=== PATIENT | female | born 1940 | race Caucasian/White ===

== ENCOUNTER 2018-01-05 16:41 | Observation (INO) | payer MEDICARE, SELFPAY ==
[2018-01-05] VITALS (7 sets, daily range): BP systolic 99–132; BP diastolic 54–92; PULSE 82–88; RESP 14–18; TEMP 36.1–36.8; O2SAT 95–98; BMI 41.5
--- NOTE | 2018-01-05 17:25 | DI.RAD.S_ITS ---
PROCEDURE: XR CHEST 1V INDICATIONS: 77 year-old female with left arm and left shoulder pain. TECHNIQUE: One view of the chest was acquired. COMPARISON: [facility], , CHEST 1 VIEW, 07/15/2015, 12:20. [facility], , CHEST 2 VIEW, 10/25/2012, 14:15. [facility], , CHEST 2 VIEW, 10/16/2008, 17:07. FINDINGS: Surgical changes and devices: None. Lungs and pleura: No pleural effusions or pneumothorax. Lungs are clear. Mediastinum: Mediastinal contours appear normal. Heart size is normal. There is aortic atherosclerosis. Bones and chest wall: No suspicious bony lesions. Overlying soft tissues appear unremarkable. IMPRESSION: No acute cardiopulmonary disease. Dictated by: Ted Renteria M.D. on 01/05/2018 at 18:48 Approved by: Ted Renteria M.D. on 01/05/2018 at 18:48
[2018-01-05 17:44] LABS: Add Manual Diff / Slide Review NO; Basophils Percent Auto 0.8 % (0-2); Hematocrit 41.3 % (36-46); Hemoglobin 13.9 g/dL (12.0-16.0); Lymphocytes Percent Auto 22.8 % (25-40); Mean Corpuscular HGB Conc 33.6 % (30-36); Mean Corpuscular Hemoglobin 31.4 PG (26-34); Mean Corpuscular Volume 93.4 fL (80-100); Monocytes Percent Auto 9.4 % (3-14); Neutrophils Absolute Auto 4900 /uL (3000-5900); Platelet Count 145 X10^3/uL (150-400); Red Blood Cell Count 4.42 X10^6/uL (4.0-5.2); Red Cell Distribution Width 12.9 % (11.6-14.8); White Blood Cell Count 7.7 X10^3/uL (4.5-11.0)
[2018-01-05 18:01] LABS: Alanine Aminotransferase 70 IU/L (9-52); Albumin Globulin Ratio 1.4 (1.0-2.8); Alkaline Phosphatase 117 U/L (38-126); Aspartate Aminotransferase 41 IU/L (14-36); BUN Creatinine Ratio 42.9 (6-22); Bilirubin Total 0.7 mg/dL (0.2-1.3); Blood Urea Nitrogen 30 mg/dL (7-17); Calcium 9.4 mg/dL (8.4-10.2); Carbon Dioxide 25 mmol/L (22-32); Chloride 104 mmol/L (98-107); Creatine Kinase 58 U/L (30-135); Estimated Glomerular Filt Rate > 60.0 mL/min (>60); Globulin 2.8 g/dL (1.7-4.1); Glucose 103 mg/dL (80-110); HEMOLYSIS < 15 (0-50); Sodium 143 mmol/L (137-145); Total Protein 6.8 g/dL (6.3-8.2)
--- NOTE | 2018-01-05 18:08 | ED.CHESTPAIN ---
HPI - Chest Pain General Chief Complaint: Chest Pain Stated Complaint: LT ARM AND SHOULDER PAIN, HX OF STENTS Time Seen by Provider: 01/05/18 17:59 Source: patient Limitations: no limitations History of Present Illness HPI narrative: The patient is a 77-year-old female who presents with left-sided chest pain. She said she was sitting down eating watermelon with her right hand instantly she had chest pain on the left side. It hurts every time she moves her left arm. It radiates to her scapula and clavicle. She feels it down into her hand. She denies any injury. She denies shortness of breath or diaphoresis. She tried sitting in a recliner see if it would go away and has not yet gone away but has lightened up some. She does have a history of cardiac arrest in 2014 requiring 4 stents. She does not remember what that felt like. She is followed in the telling him by Dr. Tan. complaint: chest pain Time: 14:42 Related Data Home Medications Medication Instructions Recorded Confirmed aspirin 81 mg PO DAILY 01/05/18 01/05/18 atorvastatin 40 mg PO DAILY 01/05/18 01/05/18 cholecalciferol (vitamin D3) 2,000 unit PO DAILY 01/05/18 01/05/18 furosemide 20 mg PO DAILY 01/05/18 01/05/18 lisinopril 2.5 mg PO QPM 01/05/18 01/05/18 magnesium 1 tab PO DAILY 01/05/18 01/05/18 metoprolol succinate 1 tab PO DAILY 01/05/18 01/05/18 multivitamin 1 tab PO DAILY 01/05/18 01/05/18 potassium chloride 10 meq PO DAILY 01/05/18 01/05/18 Allergies Allergy/AdvReac Type Severity Reaction Status Date / Time egg Allergy Severe Anaphylaxis Verified 01/05/18 23:26 Penicillins Allergy Severe Anaphylaxis Verified 01/05/18 23:26 lovastatin Allergy Intermediate Verified 01/05/18 23:26 azithromycin Allergy Mild Verified 01/05/18 23:26 codeine [CODEINE] Allergy Mild Verified 01/05/18 23:26 Sulfa (Sulfonamide Allergy Mild Verified 01/05/18 23:26 Antibiotics) Barbiturates AdvReac Verified 01/05/18 23:27 Review of Systems Review of Systems All systems reviewed & are unremarkable except as noted in HPI and below Constitutional Denies chills, Denies fever(s), Denies lethargy and Denies weakness Cardiovascular Reports as per HPI, Denies dyspnea and Denies dyspnea on exertion Respiratory Denies cough, Denies dyspnea, Denies dyspnea on exertion and Denies wheezing Musculoskeletal Reports system reviewed and no additional complaints, except as docu Neurologic Denies weakness Allergic/Immunologic Denies wheezing [facility] Medical History Coronary artery disease (Acute) Hyperlipidemia (Acute) Hypertension (Acute) Past heart attack (Acute) Surgical History H/O heart artery stent (Acute) History of back surgery (Acute) History of tonsillectomy and adenoidectomy (Acute) Hx of appendectomy (Acute) Social History household members: spouse and children Smoking Status: Never smoker Exam Initial Vital Signs Initial Vital Signs: Vital Signs Temperature 98.2 F 01/05/18 16:59 Pulse Rate 88 01/05/18 16:59 Respiratory Rate 18 01/05/18 16:59 Blood Pressure 119/54 L 01/05/18 16:59 Pulse Oximetry 97 01/05/18 16:59 Const General: cooperative Nutritional Appearance: overweight Orientation: alert, awake and oriented x3 Neck Neck: No JVD Chest Other: Pain is reproducible slightly in her left AC area Resp Effort & Inspection: normal respiratory effort and able to speak in complete sentences Auscultation: clear to auscultation bilaterally Cardio Rate: regular rate Rhythm: regular rhythm Heart Sounds: S1 normal and S2 normal GI Inspection: non-distended Palpation: soft, no hepatosplenomegaly, No guarding, No pulsatile mass and No tender Auscultation: normal bowel sounds Skin General: no rashes or lesions noted, No jaundice and No petechiae Neuro General: alert, awake and oriented x3 Cranial Nerves: CN's II-XI intact bilaterally Extrem Right lower extremity: no edema Left lower extremity: no edema Course Hospital Course: Her pain has improved has since she has been to the ED. It did get a little bit better with aspirin. We discussed on nitroglycerin however she adamantly refuses nitro. She appears comfortable. Orders Ordered: ED Orders 01/05/18 18:09 EKG-12 Lead Stat 01/05/18 19:29 Consult to Physician Routine 01/05/18 21:56 MRSA PCR Stat 01/06/18 00:28 NM bita perf SPECT rest & str Routine 01/06/18 02:34 Troponin I Urgent Acetaminophen (Tylenol) 650 mg PO Q6HR PRN PRN Reason: As Needed for Fever/Mild Pain Aspirin (Aspirin Ec) 81 mg PO QPM [facility] Atorvastatin Calcium (Lipitor) 40 mg PO BEDTIME [facility] Last Admin: 01/06/18 00:05 Dose: Not Given Furosemide (Lasix) 20 mg PO SuTuTh@0900 KG Lisinopril (Zestril) 2.5 mg PO QPM [facility] Last Admin: 01/05/18 23:58 Dose: 2.5 mg Magnesium Chloride (Slow-Mag) 64 mg PO QPM [facility] Last Admin: 01/05/18 22:55 Dose: Multivitamins (Tab-A-Monet) 1 tab PO DAILY [facility] Potassium Chloride (Klor-Con M10) 10 meq PO DAILYCC [facility] Vitamin D (Vitamin D3) 2,000 unit PO DAILY KG Discontinued Medications Aspirin (Aspirin) 325 mg PO NOW ONE Stop: 01/05/18 18:09 Last Admin: 01/05/18 18:27 Dose: 325 mg Furosemide (Lasix) 20 mg PO DAILY [facility] Ketorolac Tromethamine (Toradol) 15 mg IV NOW ONE Stop: 01/06/18 02:07 Last Admin: 01/06/18 02:40 Dose: 15 mg Reevaluation(s) Reevaluation #1: Dr. Banda has been updated patient's symptoms and test results. Vital Signs - 8 hr 01/05/18 19:13 01/05/18 20:50 01/05/18 23:58 Temperature 97.0 F L Pulse Rate 83 82 83 Respiratory Rate 15 17 Blood Pressure 124/92 H 99/57 L Blood Pressure [Right Arm] 124/70 H Pulse Oximetry 97 95 01/06/18 00:35 Temperature 98.1 F Pulse Rate 93 H Respiratory Rate 18 Blood Pressure 99/57 L Blood Pressure [Right Arm] Pulse Oximetry 96 MDM - Chest Pain Lab Data Attestation: I reviewed the patient's lab results. Result diagrams: 01/05/18 17:28 01/05/18 17:28 Lab Results 01/05/18 01/05/18 01/05/18 Range/Units 17:28 17:28 17:28 WBC 7.7 (4.5-11.0) X10^3/uL RBC 4.42 (4.0-5.2) X10^6/uL Hgb 13.9 (12.0-16.0) g/dL Hct 41.3 (36-46) % MCV 93.4 (80-100) fL MCH 31.4 (26-34) PG MCHC 33.6 (30-36) % RDW 12.9 (11.6-14.8) % Plt Count 145 L (150-400) X10^3/uL Neut % (Auto) 64.0 (50-75) % Lymph % (Auto) 22.8 L (25-40) % Pacific % (Auto) 9.4 (3-14) % Eos % (Auto) 3.0 (2-4) % Baso % (Auto) 0.8 (0-2) % Neut # (Auto) 4900 (3651-7483) /uL Sodium 143 (137-145) mmol/L Potassium 4.0 (3.4-5.1) mmol/L Chloride 104 (98-107) mmol/L Carbon Dioxide 25 (22-32) mmol/L BUN 30 H (7-17) mg/dL Creatinine 0.70 (0.52-1.04) mg/dL Estimated GFR > 60.0 (>60) mL/min BUN/Creatinine Ratio 42.9 H (6-22) Glucose 103 (80-110) mg/dL Calcium 9.4 (8.4-10.2) mg/dL Magnesium (1.6-2.3) mg/dL Total Bilirubin 0.7 (0.2-1.3) mg/dL AST 41 H (14-36) IU/L ALT 70 H (9-52) IU/L Alkaline Phosphatase 117 (38-126) U/L Total Creatine Kinase 58 (30-135) U/L CK-MB (CK-2) TNP Troponin I < 0.012 (0.01-0.034) ng/mL B-Natriuretic Peptide (<29.3) Total Protein 6.8 (6.3-8.2) g/dL Albumin 4.0 (3.5-5.0) g/dL Globulin 2.8 (1.7-4.1) g/dL Albumin/Globulin Ratio 1.4 (1.0-2.8) Nasal Screen MRSA (PCR) (Negative) 01/05/18 01/05/18 01/05/18 Range/Units 17:28 17:28 21:56 WBC (4.5-11.0) X10^3/uL RBC (4.0-5.2) X10^6/uL Hgb (12.0-16.0) g/dL Hct (36-46) % MCV (80-100) fL MCH (26-34) PG MCHC (30-36) % RDW (11.6-14.8) % Plt Count (150-400) X10^3/uL Neut % (Auto) (50-75) % Lymph % (Auto) (25-40) % Pacific % (Auto) (3-14) % Eos % (Auto) (2-4) % Baso % (Auto) (0-2) % Neut # (Auto) (0471-6181) /uL Sodium (137-145) mmol/L Potassium (3.4-5.1) mmol/L Chloride (98-107) mmol/L Carbon Dioxide (22-32) mmol/L BUN (7-17) mg/dL Creatinine (0.52-1.04) mg/dL Estimated GFR (>60) mL/min BUN/Creatinine Ratio (6-22) Glucose (80-110) mg/dL Calcium (8.4-10.2) mg/dL Magnesium 1.8 (1.6-2.3) mg/dL Total Bilirubin (0.2-1.3) mg/dL AST (14-36) IU/L ALT (9-52) IU/L Alkaline Phosphatase (38-126) U/L Total Creatine Kinase (30-135) U/L CK-MB (CK-2) Troponin I (0.01-0.034) ng/mL B-Natriuretic Peptide 80.1 (<29.3) Total Protein (6.3-8.2) g/dL Albumin (3.5-5.0) g/dL Globulin (1.7-4.1) g/dL Albumin/Globulin Ratio (1.0-2.8) Nasal Screen MRSA (PCR) Negative for mrsa (Negative) Imaging Data Chest x-ray: Radiologist's impression: PROCEDURE: XR CHEST 1V INDICATIONS: 77 year-old female with left arm and left shoulder pain. TECHNIQUE: One view of the chest was acquired. COMPARISON: [facility], , CHEST 1 VIEW, 07/15/2015, 12:20. [facility], , CHEST 2 VIEW, 10/25/2012, 14:15. [facility], , CHEST 2 VIEW, 10/16/2008, 17:07. FINDINGS: Surgical changes and devices: None. Lungs and pleura: No pleural effusions or pneumothorax. Lungs are clear. Mediastinum: Mediastinal contours appear normal. Heart size is normal. There is aortic atherosclerosis. Bones and chest wall: No suspicious bony lesions. Overlying soft tissues appear unremarkable. IMPRESSION: No acute cardiopulmonary disease. Dictated by: Ted Renteria M.D. on 01/05/2018 at 18:48 ECG Data Attestation: I personally reviewed and interpreted this ECG as follows: Prior ECG tracings: not available for review Interpretation: EKG 1.: Sinus rhythm rate 75 left bundle-branch block no acute ST changes no prior to compare EKG 2. Normal sinus rhythm rate 83 no changes from prior no ST changes with bundle-branch block MDM Narrative Medical decision making narrative: Patient has significant coronary artery disease with a cardiac arrest on 3 years ago. She has followed up and telling him. Still awaiting records. Patient says this pain is different from her previous pain. Some of it is reproducible with movement however she is considered high risk and will be placed in observation for further monitoring and evaluation. Discharge Plan Departure Patient Disposition: Admitted as Observation Clinical Impression: Chest pain Discharge Date/Time: 01/05/18 20:24 Interventions: ED Discharge Assessment Last Done: 01/05/18 20:17 Admit Date/Time: 01/05/18 19:41 Admit Provider: Adam Banda V
[2018-01-05 18:17] LABS: Troponin I < 0.012 ng/mL (0.01-0.034)
[2018-01-05] MEDS: ASPIRIN 325 MG TABLET PO (18:27)
[2018-01-05 19:13] LABS: B Type Natriuretic Peptide 80.1 (<29.3)
[2018-01-05 19:45] LABS: Magnesium 1.8 mg/dL (1.6-2.3)
--- NOTE | 2018-01-05 22:43 | PC.NURSE ---
Admission Note: Pt admitted to ICU from ER for chest discomfort. Pt reports chest discomfort at 3/10 after getting OOB to BS. Pt states that she has taken nitroglycerin before and would not take again d/t adverse side effects. Pt in NSR with BBB. Pt with significant R sided weakness and tremoring in RUE. Also significant core weakness that causes her to wobble back and forth with standing. Pt is accustomed to these mobility issues and is independent with mobility at home. Discussed fall safety measures, pt states she can't use a FWW d/t her movement issues and the fact that they move with her rather than providing stability. Pt states at home she uses marte for stability and holds onto door jambs. Discussed that we will be helping her with transferring while she is in the hospital. Recommend 2 person assist d/t unpredictable movement patterns. Pt otherwise with VSS, A and O x3. Orders received to recheck troponins in am. Continue to monitor, notify MD with changes.
[2018-01-05] MEDS: LISINOPRIL 5 MG TABLET 2.5 MG PO (23:58)
[2018-01-06] VITALS (12 sets, daily range): BP systolic 80–121; BP diastolic 44–70; PULSE 72–93; RESP 16–18; TEMP 36.3–37.2; O2SAT 93–97
[2018-01-06] MEDS: KETOROLAC 15 MG/ML VIAL IV (02:40)
--- NOTE | 2018-01-06 02:45 | PC.NURSE ---
Started c/o left shoulder/arm pain after I tried to help her find the siderail by moving her arm above her shoulder to move herself in the bed. Tried repositioning and a warm blanket on shoulder, then called Dr. Banda for orders. Med with Toradol 15mg and will re-evaluate.
[2018-01-06 03:02] LABS: Troponin I < 0.012 ng/mL (0.01-0.034)
[2018-01-06] MEDS: POTASSIUM CHLORIDE 10 MEQ TAB PO (09:22)
[2018-01-06] MEDS: MULTIVITAMIN 1 TABLET 1 TAB PO (09:22)
[2018-01-06] MEDS: CHOLECALCIFEROL (VITAMIN D3) 1,000 UNIT TABLET 2000 UNIT PO (09:22)
--- NOTE | 2018-01-06 09:53 | CM.DANOTE ---
Addendum entered by Hiral Newton 01/07/18 12:55: Per Md: PT/OT eval not needed and patient to discharge home today. Original Note: DCP Assessment Patient is a 77 year old female who was admitted on 01/05/18 for Lt Arm Pain and Hx Stents. Pt has MCR and [employer] for insurance and her PCP is Dr. Spivey. EMR was reviewed. Per MD, about to assess pt bedside to determine if stress test needed or further tests before discharge. SW met bedside with pt and explained role and pt confirmed that she lives at home in [place] with her , who is currently in [place], and has supportive son Bernard who lives in [place] and son Rory who lives in [place], [place]. Pt states her DPOA's are her sons and . Pt confirms that she is independent with ADL's at baseline and does tend to ambulate by wall and furniture surfing and has figured out how to safely ambulate and goes to outpt PT 5 days a week and drives herself to appointments and shopping. Pt denies any hx of HH or SNF and states that if she can get her pain in her arm/chest and toes controlled then she does not anticipate any needs. Plan: SW to follow for further MD assessment to determine if further tests needed and possible PT/OT orders to determine any further d/c planning needs. SW to follow closely. Edita Soto MSW
--- NOTE | 2018-01-06 10:16 | P.HP_ITS ---
History of Present Illness Date Patient Seen: 01/06/18 Chief complaint: LT ARM AND SHOULDER PAIN, HX OF STENTS Narrative: Patient is 77-year-old female with history of 3 vessel CAD, cardiac stents after cardiac arrest in 2014, chronic chest pain subsequent to cardiac arrest, presented to emergency department with complaints of chest discomfort that was more severe and not going away. She was lying down in bed and developed severe substernal and left-sided chest pain radiating to the left arm , neck, jaw and head. This pain persisted quite a while and she was told by PCP to seek urgent evaluation in the ER. The pain had subsided to around 4/10 by the time she was seen in the ER last night and this morning the pain has largely resolved. She does have chronic pain in the chest which occurs daily but is not there all the time and is relieved when she sits up in her recliner. This pain seems to have been more severe and persistent. She has had 2 serial negative troponin. EKG with baseline left bundle-branch block. She sees Dr. Prince Alcala for Cardiology. Patient History Medical History Cardiac arrest (Acute) Coronary artery disease (Acute) Hyperlipidemia (Acute) Hypertension (Acute) Past heart attack (Acute) Systolic heart failure (Acute) Surgical History H/O heart artery stent (Acute) History of back surgery (Acute) History of tonsillectomy and adenoidectomy (Acute) Hx of appendectomy (Acute) Hx of cholecystectomy (Acute) Family & Social History Family History: Reviewed 01/06/18 by Delfino Vieira MD Social History: household members spouse,children Prior Living Arrangements House Safety & Behavioral: Feels Safe in Current Yes Environment Been Physically Hurt or No Threatened By a Person Suicidal Ideation Description None Suicide Plan Description No Plan Tobacco & Substance use: Smoking Status Never smoker alcohol intake frequency 0-2 drinks per day Substance Use Type does not use Meds Home Medications Medication Instructions Recorded Confirmed Type aspirin 81 mg PO DAILY 01/05/18 01/05/18 History atorvastatin 40 mg PO DAILY 01/05/18 01/05/18 History cholecalciferol (vitamin D3) 2,000 unit PO DAILY 01/05/18 01/05/18 History furosemide 20 mg PO DAILY 01/05/18 01/05/18 History lisinopril 2.5 mg PO QPM 01/05/18 01/05/18 History magnesium 1 tab PO DAILY 01/05/18 01/05/18 History metoprolol succinate 1 tab PO DAILY 01/05/18 01/05/18 History multivitamin 1 tab PO DAILY 01/05/18 01/05/18 History potassium chloride 10 meq PO DAILY 01/05/18 01/05/18 History Allergies Allergy/AdvReac Type Severity Reaction Status Date / Time egg Allergy Severe Anaphylaxis Verified 01/05/18 23:26 Penicillins Allergy Severe Anaphylaxis Verified 01/05/18 23:26 lovastatin Allergy Intermediate Verified 01/05/18 23:26 azithromycin Allergy Mild Verified 01/05/18 23:26 codeine [CODEINE] Allergy Mild Verified 01/05/18 23:26 Sulfa (Sulfonamide Allergy Mild Verified 01/05/18 23:26 Antibiotics) Barbiturates AdvReac Verified 01/05/18 23:27 Review of Systems Review of Systems All systems reviewed & are unremarkable except as noted in HPI and below Exam Vital Signs (past 8 hours): Vital Signs - 8 hr 3 01/06/18 04:36 01/06/18 09:47 Temperature 97.5 F L 98.9 F Pulse Rate 78 72 Respiratory Rate 16 16 Blood Pressure 115/56 L 121/65 H Pulse Oximetry 97 97 Pulse Oximetry 97 Oxygen Delivery Method Room Air Oxygen Flow Rate 0 Narrative Exam Narrative: GENERAL: This is an alert well-nourished, well-developed patient , in no apparent distress. HEAD: Atraumatic. Normocephalic. EYES: Pupils equal, round and reactive. Extraocular motions intact. No scleral icterus. No injection or drainage. OROPHARYNX: moist mucosa NECK: Trachea midline. No JVD or lymphadenopathy. Cardiac: Normal S1 and S2, regular rate and rhythm, slight systolic murmur, no gallops, or rubs. RESPIRATORY: Clear to auscultation bilaterally. GASTROINTESTINAL: Abdomen nondistended, soft, non-tender. No hepato- splenomegaly, or palpable masses. EXTREMITIES: No edema. NEUROLOGICAL: Alert, well oriented, speech is intact, normal bilateral upper and lower extremity strength, she has right upper extremity movement tremor SKIN: warm, dry, no rash Objective Labs Result Diagrams: 01/05/18 17:28 01/05/18 17:28 Labs: Chest x-ray: No acute cardiopulmonary disease. EKG: Sinus rhythm, left bundle branch block 01/05/1818 01/05/18 17:28 17:28 17:28 WBC 7.7 RBC 4.42 Hgb 13.9 Hct 41.3 MCV 93.4 MCH 31.4 MCHC 33.6 RDW 12.9 Plt Count 145 L Neut % (Auto) 64.0 Lymph % (Auto) 22.8 L Grainger % (Auto) 9.4 Eos % (Auto) 3.0 Baso % (Auto) 0.8 Neut # (Auto) 4900 Sodium 143 Potassium 4.0 Chloride 104 Carbon Dioxide 25 BUN 30 H Creatinine 0.70 Estimated GFR > 60.0 BUN/Creatinine Ratio 42.9 H Glucose 103 Calcium 9.4 Magnesium Total Bilirubin 0.7 AST 41 H ALT 70 H Alkaline Phosphatase 117 Total Creatine Kinase 58 CK-MB (CK-2) TNP Troponin I < 0.012 B-Natriuretic Peptide Total Protein 6.8 Albumin 4.0 Globulin 2.8 Albumin/Globulin Ratio 1.4 Nasal Screen MRSA (PCR) 01/05/18 01/05/18 01/05/18 17:28 17:28 21:56 WBC RBC Hgb Hct MCV MCH MCHC RDW Plt Count Neut % (Auto) Lymph % (Auto) Grainger % (Auto) Eos % (Auto) Baso % (Auto) Neut # (Auto) Sodium Potassium Chloride Carbon Dioxide BUN Creatinine Estimated GFR BUN/Creatinine Ratio Glucose Calcium Magnesium 1.8 Total Bilirubin AST ALT Alkaline Phosphatase Total Creatine Kinase CK-MB (CK-2) Troponin I B-Natriuretic Peptide 80.1 Total Protein Albumin Globulin Albumin/Globulin Ratio Nasal Screen MRSA (PCR) Negative for mrsa 01/06/18 02:34 WBC RBC Hgb Hct MCV MCH MCHC RDW Plt Count Neut % (Auto) Lymph % (Auto) Grainger % (Auto) Eos % (Auto) Baso % (Auto) Neut # (Auto) Sodium Potassium Chloride Carbon Dioxide BUN Creatinine Estimated GFR BUN/Creatinine Ratio Glucose Calcium Magnesium Total Bilirubin AST ALT Alkaline Phosphatase Total Creatine Kinase CK-MB (CK-2) Troponin I < 0.012 B-Natriuretic Peptide Total Protein Albumin Globulin Albumin/Globulin Ratio Nasal Screen MRSA (PCR) Assessment & Plan Plan: Assessment/Plan Narrative: 1. Chest pain episode: Patient has significant cardiac risk factor of 3 vessel CAD, previous cardiac arrest, and coronary stents. However current episode of chest pain is on background of chronic chest pain since her cardiac arrest but with this episode more severe and persistent. It is unclear whether this is truly cardiac source of pain. Her 1st 2 sets of troponin are negative. EKG was sinus rhythm and left bundle branch block. Due to her cardiac history, we have admitted to observation and arranged for Lexiscan myocardial perfusion stress test to determine presence of any reversible ischemia. Continue routine aspirin, atorvastatin, lisinopril, metoprolol, furosemide and potassium and magnesium pills per home routine.
--- NOTE | 2018-01-06 12:37 | PC.NURSE ---
pt had emily stress test, tolerated well. sitting in chair for lunch
[2018-01-06] MEDS: SODIUM CHLORIDE 0.9% 1,000 ML 1000 ML IV (15:52)
--- NOTE | 2018-01-06 16:06 | PC.NURSE ---
Addendum entered by Madhuri Aguero R.N. 01/06/18 21:19: Pt A&O, VSS, 94% on RA through out shift. Tele SR/BBB, no ectopy. BP after IV Bolus 121/70 and 106/61. Pt accidently removed PIV, new PIV restarted in L upper arm, currently SL. No complaints of chest pain or discomfort through out shift. Up w/ SBA to bathroom, using call light appropriately. Original Note: Evening Shift Pt hypotensive at begining of shift 80/59, expressing slight dizziness and need to go back top bed. Pt was helped to bed and BP taken while standing, BP 97/48. Pt helped back in bed and states that she feels fine, except for slight dizziness. BP supine in bed 80/59. paged and orders received for 1L bolus. Bolus currently infusing.
[2018-01-06] MEDS: ATORVASTATIN 20 MG TABLET 40 MG PO (21:11)
[2018-01-06] MEDS: ASPIRIN EC 81 MG TABLET PO (21:11)
[2018-01-06] MEDS: MAGNESIUM CHLORIDE 64 MG TABLET PO (21:11)
[2018-01-07 03:00] VITALS: BP 131/61; PULSE 83; RESP 17; TEMP 36.4; O2SAT 95
[2018-01-07 07:52] VITALS: BP 120/77; PULSE 73; RESP 16; TEMP 36.4; O2SAT 96
[2018-01-07] MEDS: MULTIVITAMIN 1 TABLET 1 TAB PO (08:18)
[2018-01-07] MEDS: POTASSIUM CHLORIDE 10 MEQ TAB PO (08:18)
[2018-01-07] MEDS: CHOLECALCIFEROL (VITAMIN D3) 1,000 UNIT TABLET 2000 UNIT PO (08:18)
--- NOTE | 2018-01-07 11:02 | PC.NURSE ---
pt back from [facility].
[2018-01-07 12:23] VITALS: BP 136/71; PULSE 79; RESP 16; TEMP 36.1; O2SAT 96
--- NOTE | 2018-01-07 12:45 | PM.DS.1 ---
History of Present Illness Chief complaint: LT ARM AND SHOULDER PAIN, HX OF STENTS Narrative: Patient is 77-year-old female with history of 3 vessel CAD, cardiac stents after cardiac arrest in 2015, chronic chest pain subsequent to cardiac arrest, presented to emergency department with complaints of chest discomfort that was more severe and not going away. She was lying down in bed and developed severe substernal and left-sided chest pain radiating to the left arm, neck, jaw and head. This pain persisted quite a while and she was told by PCP to seek urgent evaluation in the ER. The pain had subsided to around 4/10 by the time she was seen in the ER last night and this morning the pain has largely resolved. She does have chronic pain in the chest which occurs daily but is not there all the time and is relieved when she sits up in her recliner. This pain seems to have been more severe and persistent. She has had 2 serial negative troponin. EKG with baseline left bundle-branch block. She sees Dr. Prince Alcala for Cardiology. Discharge Providers Date of admission: 01/05/18 19:41 Primary care physician: Selene Spivey MD Consults: 01/05/18 19:29 Consult to Physician Routine Comment: Consulting Provider: Adam Banda V Reason for consultation: admission Has provider been notified: Yes Discharge provider: Delfino Vieira MD Summary Discharge Diagnosis: 1. Chest pain, probably noncardiac 2. Coronary artery disease Hospital Course: Patient ruled out for NM. A Lexiscan stress test was conducted. She has some regional wall motion changes without obvious reversibility. Her LVEF is 70%. Her pain is quite atypical, on background of chronic pain in same area, with normal troponin and no obvious reversible ischemia on stress testing. She is therefore low risk for discharge to follow up with her regular biomedical specialist Dr. Prince Alcala. She had questions regarding her neurological condition which I was unable to answer and suggested she follow up with her PCP. She has seen Dr. Ha for Neurology and will need to establish with new neurologist now that Dr. Ha has retired. Status at Discharge Functional status at discharge: independent ambulation Overall status at discharge: patient is back to baseline Exam Vital Signs (past 8 hours): Vital Signs - 8 hr 01/07/18 07:52 01/07/18 12:23 Temperature 97.5 F L 97.0 F L Pulse Rate 73 79 Respiratory Rate 16 16 Blood Pressure 120/77 136/71 H Pulse Oximetry 96 96 Pulse Oximetry 96 Oxygen Delivery Method Room Air Oxygen Flow Rate 0 Objective Labs Result Diagrams: 01/05/18 17:28 01/05/18 17:28 Discharge Plan Discharge Plan Patient Disposition: Home, Self-Care Provider Discharge Instructions Diet: Diet as Tolerated Discharge Data Primary Care Provider: Selene Spivey Attending Provider: Adam Banda V Admit Date/Time: 01/05/18 19:41
--- NOTE | 2018-01-07 12:50 | P.DS_ITS ---
History of Present Illness Chief complaint: LT ARM AND SHOULDER PAIN, HX OF STENTS Narrative: Patient is 77-year-old female with history of 3 vessel CAD, cardiac stents after cardiac arrest in 2015, chronic chest pain subsequent to cardiac arrest, presented to emergency department with complaints of chest discomfort that was more severe and not going away. She was lying down in bed and developed severe substernal and left-sided chest pain radiating to the left arm , neck, jaw and head. This pain persisted quite a while and she was told by PCP to seek urgent evaluation in the ER. The pain had subsided to around 4/10 by the time she was seen in the ER last night and this morning the pain has largely resolved. She does have chronic pain in the chest which occurs daily but is not there all the time and is relieved when she sits up in her recliner. This pain seems to have been more severe and persistent. She has had 2 serial negative troponin. EKG with baseline left bundle-branch block. She sees Dr. Prince Alcala for Cardiology. Discharge Providers Date of admission: 01/05/18 19:41 Primary care physician: Selene Spivey MD Consults: 01/05/18 19:29 Consult to Physician Routine Comment: Consulting Provider: Adam Banda V Reason for consultation: admission Has provider been notified: Yes Discharge provider: Delfino Vieira MD Summary Discharge Diagnosis: 1. Chest pain, probably noncardiac 2. Coronary artery disease Hospital Course: Patient ruled out for MN. A Lexiscan stress test was conducted. She has some regional wall motion changes without obvious reversibility. Her LVEF is 70%. Her pain is quite atypical, on background of chronic pain in same area, with normal troponin and no obvious reversible ischemia on stress testing. 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 She had questions regarding her neurological condition which I was unable to answer and suggested she follow up with her PCP. She has seen Dr. Ha for Neurology and will need to establish with new neurologist now that Dr. Ha has retired. Status at Discharge Functional status at discharge: independent ambulation Overall status at discharge: patient is back to baseline Exam Vital Signs (past 8 hours): Vital Signs - 8 hr 3 01/07/18 07:52 01/07/18 12:23 Temperature 97.5 F L 97.0 F L Pulse Rate 73 79 Respiratory Rate 16 16 Blood Pressure 120/77 136/71 H Pulse Oximetry 96 96 Pulse Oximetry 96 Oxygen Delivery Method Room Air Oxygen Flow Rate 0 Objective Labs Result Diagrams: 01/05/18 17:28 01/05/18 17:28 Discharge Plan Discharge Plan Patient Disposition: Home, Self-Care Provider Discharge Instructions Diet: Diet as Tolerated Discharge Data Primary Care Provider: Selene Spivey Attending Provider: dAam Banda V Admit Date/Time: 01/05/18 19:41
--- NOTE | 2018-01-07 15:31 | DI.NM.S_ITS ---
DATE OF SERVICE: 01/06/2018 PROCEDURE PERFORMED: Pharmacologic vasodilator stress and rest myocardial perfusion imaging with gating to assess ejection fraction and regional wall motion. ORDERING PROVIDER: Adam Banda MD INDICATIONS: The patient is a 77-year-old obese female with a history of percutaneous coronary revascularization who now presents with atypical chest discomfort and normal troponins. PHARMACOLOGIC STRESS: Per protocol, 0.4 mg of regadenoson was infused with a normal hemodynamic response. She continued to have her chronic chest discomfort but nothing new. Her ECG showed an incomplete left bundle branch block and there were no significant ST-segment shifts with stress to suggest ischemia. There were no arrhythmias. Per protocol, 20.4 mCi of technetium-99 Myoview IV was injected, and the patient was imaged 25 minutes later using a gated SPECT acquisition protocol. She returned the following day and was reinjected with 26.4 mCi of technetium-99 Myoview and was imaged 45 minutes later, again using a gated SPECT protocol. FINDINGS: 1. RAW DATA: Image quality is moderately poor, in part due to the patient's body habitus with very prominent breast shadows which clearly produce significant attenuation artifact. The lung/heart ratio was mildly elevated at 0.44, which can be a sign of pulmonary congestion, although it is fairly nonspecific given the amount of chest wall attenuation seen. The TID ratio is normal at 1.11. 2. QUANTITATIVE GATED SPECT: Post-stress ejection fraction is estimated at 72% without any focal wall motion abnormality. Resting ejection fraction is estimated at 80% with a normal end-diastolic volume of 82 mL. 3. MYOCARDIAL PERFUSION IMAGING: Post-stress supine images are of marginal quality with slight heterogeneity diffusely with some reduced tracer activity at the base of the inferior wall in a pattern that would be consistent with diaphragmatic attenuation as well as a fairly subtle defect in the very distal anteroapex, which would be consistent with breast attenuation artifact. Prone imaging was unable to be obtained because of the patient's immobility. The resting images show an identical perfusion pattern with no improvement in the defects seen on the stress images. In addition, there is a more profound defect in the anterolateral wall, which likely reflects differential breast positioning. CONCLUSION: 1. Probable normal myocardial perfusion study. 2. Mild fixed proximal inferior and distal anteroapical defects that likely reflect attenuation artifact. There is no compelling evidence for myocardial ischemia or previous myocardial infarction. 3. Normal left ventricular systolic function without any obvious focal wall motion abnormalities. 4. Chronic chest discomfort but no concerning symptoms for angina with an incomplete LBBB that limits interpretation of the ECG. Lucie Root - /jose a/ doc#: [id number]/job#: [id number] dd: 01/07/2018 12:35:00 dt: 01/07/2018 15:07:00 DICTATING MD/COPIES TO: Dariel Lopez MD; Adam Banda MD; Prince Alcala MD COPIES MNE: AMILCAR PINEDA; TONE
== END 2018-01-07 13:15 | disposition home or self-care (01) ==
LOC: ED 17:59 → ICU 19:41
PROVIDERS: Emergency Medicine; Admitting Provider Internal Medicine; Emergency Provider Emergency Medicine; Family Provider Internal Medicine Cardiovascular Disease; PCP Internal Medicine; Visit Provider Internal Medicine
DX: R07.9 Chest pain, unspecified (principal); I25.10 Atherosclerotic heart disease of native coronary artery without angina pectoris; E78.5 Hyperlipidemia, unspecified; I10 Essential (primary) hypertension; I25.2 Old myocardial infarction; M25.512 Pain in left shoulder; M79.622 Pain in left upper arm
CPT/HCPCS: 36415; 36592; 71045; 78452; 80053; 82550; 82553; 83735; 83880; 84484; 85025; 87797; 93005; 93016; 93017; 93018; 93041; 96374; 99283; 99285; G0378; A9502; J1885; J2785

== ENCOUNTER → 2019-01-13 09:48 | Outpatient (CLI) | payer MEDICARE, SELFPAY ==
[2019-01-02 13:47] VITALS: BMI 41.5
--- NOTE | 2019-01-13 | DI.MG.S_ITS ---
BILATERAL DIGITAL SCREENING MAMMOGRAM 3D/2D WITH CAD: 01/13/2019 CLINICAL: Routine screening. Comparison is made to exams dated: 04/29/2017 mammogram, 04/24/2016 mammogram, and 04/12/2015 mammogram - [facility]. There are scattered fibroglandular elements in both breasts. Current study was also evaluated with a Computer Aided Detection (CAD) system. There are benign calcifications in both breasts. No significant masses, calcifications, or other findings are seen in either breast. There has been no significant interval change. IMPRESSION: There is no mammographic evidence of malignancy. A 1 year screening mammogram is recommended. This exam was interpreted at Station ID: [id number]. NOTE: For mammograms, a report in lay terms will be sent to the patient. Approximately 15% of breast malignancies will not be visualized mammographically. In the management of a palpable breast mass, a negative mammogram must not discourage biopsy of a clinically suspicious lesion. Electronically Signed By: Awais york/cody:01/17/2019 10:53:40 letter sent: Normal Exam ACR BI-RADS Category 2: Benign Finding(s) [id number]
== END ==
PROVIDERS: PCP Internal Medicine; Visit Provider Internal Medicine
DX: Z12.31 Encounter for screening mammogram for malignant neoplasm of breast (principal)
CPT/HCPCS: 77063; 77067

== ENCOUNTER 2019-02-13 10:52 | Emergency (ER) | payer MEDICARE, SELFPAY ==
[2019-01-02 13:47] VITALS: BMI 41.5
[2019-02-13] VITALS (9 sets, daily range): BP systolic 106–127; BP diastolic 67–83; PULSE 75–91; RESP 13–22; TEMP 36.2; O2SAT 93–95
[2019-02-13] MEDS: ONDANSETRON 4 MG/2 ML INJ IV ×2 (11:31→16:20)
[2019-02-13 11:33] LABS: Add Manual Diff / Slide Review NO; Basophils Absolute Auto 0 /uL (0-100); Basophils Percent Auto 0.6 % (0-2); Eosinophils Absolute Auto 100 /uL (0-450); Eosinophils Percent Auto 1.2 % (2-4); Hematocrit 45.1 % (36-46); Lymphocytes Absolute Auto 700 /uL (1100-4500); Lymphocytes Percent Auto 12.2 % (25-40); Mean Corpuscular HGB Conc 33.4 % (30-36); Mean Corpuscular Hemoglobin 31.1 PG (26-34); Mean Corpuscular Volume 93.2 fL (80-100); Monocytes Absolute Auto 600 /uL (0-900); Monocytes Percent Auto 10.3 % (3-14); Neutrophils Absolute Auto 4400 /uL (1500-7000); Neutrophils Percent Auto 75.7 % (50-75); Platelet Count 137 X10^3/uL (150-400); Red Blood Cell Count 4.84 X10^6/uL (4.0-5.2); Red Cell Distribution Width 13.2 % (11.6-14.8); White Blood Cell Count 5.8 X10^3/uL (4.5-11.0)
[2019-02-13 11:46] LABS: INR 1.1 (0.9-1.3); Prothrombin Time 12.3 SECONDS (10.1-12.7)
[2019-02-13 11:48] LABS: Alanine Aminotransferase 40 IU/L (9-52); Albumin 4.2 g/dL (3.5-5.0); Albumin Globulin Ratio 1.4 (1.0-2.8); Alkaline Phosphatase 98 U/L (38-126); Aspartate Aminotransferase 34 IU/L (14-36); BUN Creatinine Ratio 27.5 (6-22); Bilirubin Total 0.8 mg/dL (0.2-1.3); Blood Urea Nitrogen 22 mg/dL (7-17); Calcium 9.6 mg/dL (8.4-10.2); Carbon Dioxide 24 mmol/L (22-32); Chloride 107 mmol/L (98-107); Estimated Glomerular Filt Rate > 60.0 mL/min (>60); Globulin 2.9 g/dL (1.7-4.1); Glucose 119 mg/dL (80-110); HEMOLYSIS < 15 (0-50); PTT Partial Thromboplastin Tim 33 SECONDS (26.4-36.2); Potassium 3.9 mmol/L (3.4-5.1); Sodium 142 mmol/L (137-145); Total Protein 7.1 g/dL (6.3-8.2)
--- NOTE | 2019-02-13 11:54 | DI.RAD.S_ITS ---
PROCEDURE: XR CHEST 1V INDICATIONS: Chest pain TECHNIQUE: One view of the chest was acquired. COMPARISON: [facility], CR, XR CHEST 1V, 01/05/2018, 18:25. FINDINGS: Surgical changes and devices: None. Lungs and pleura: Low lung volumes with scattered subsegmental atelectasis/scarring. No pleural effusions or pneumothorax. There are mild patchy retrocardiac opacities Mediastinum: Mediastinal contours appear normal. Heart size is normal. Bones and chest wall: No suspicious bony lesions. Overlying soft tissues appear unremarkable. IMPRESSION: Low lung volumes with scattered atelectasis/aspiration. Dictated by: Rafat Brown M.D. on 02/13/2019 at 12:12 Approved by: Rafat Brown M.D. on 02/13/2019 at 12:14
--- NOTE | 2019-02-13 11:58 | ED.NAVMDI ---
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 Patient also states that she has had left-sided chest discomfort yesterday but that has resolved. Patient states that she was able to eat soup last night a little bit this morning. Denies shortness of breath, chest pain at this time, headaches, change in vision, swelling of her legs, or syncope. Patient also denies sick contacts. Related Data Home Medications Medication Instructions Recorded Confirmed aspirin 81 mg PO DAILY 01/05/18 01/05/18 atorvastatin 40 mg PO DAILY 01/05/18 02/13/19 cholecalciferol (vitamin D3) 2,000 unit PO DAILY 01/05/18 01/05/18 furosemide 20 mg PO DAILY 01/05/18 02/13/19 lisinopril 2.5 mg PO QPM 01/05/18 02/13/19 magnesium 1 tab PO DAILY 01/05/18 01/05/18 metoprolol succinate 25 mg PO DAILY 01/05/18 02/13/19 multivitamin 1 tab PO DAILY 01/05/18 01/05/18 potassium chloride 10 meq PO DAILY 01/05/18 02/13/19 oxybutynin chloride 5 mg PO TID 02/13/19 02/13/19 Previous Rx's Medication Instructions Recorded ondansetron 4 mg PO Q8H #10 tab 02/13/19 Allergies Allergy/AdvReac Type Severity Reaction Status Date / Time egg Allergy Severe Anaphylaxis Verified 01/05/18 23:26 Penicillins Allergy Severe Anaphylaxis Verified 01/05/18 23:26 lovastatin Allergy Intermediate Verified 01/05/18 23:26 azithromycin Allergy Mild Verified 01/05/18 23:26 codeine [CODEINE] Allergy Mild Verified 01/05/18 23:26 Sulfa (Sulfonamide Allergy Mild Verified 01/05/18 23:26 Antibiotics) Barbiturates AdvReac Verified 01/05/18 23:27 Review of Systems <PATRICIA Saldaña - Last Filed: 02/13/19 21:53> Review of Systems REVIEW OF SYSTEMS: GENERAL: Denies fever, chills, malaise, or wt. loss. HENT: No head trauma, sore throat, or dysphagia. EYES: No loss of vision, double vision, eye pain, or irritation. CARDIOVASCULAR: Complains of chest pain a few days ago, palpitations, or orthopnea. RESPIRATORY: No shortness of breath or cough. GASTROINTESTINAL: Complains of vomiting and diarrhea, see HPI GENITOURINARY: No flank pain, urinary incontinence, hesitancy, frequency, or dysuria. MUSCULOSKELETAL: No pain, weakness, or trauma. INTEGUMENTARY: No rash, lesions, or pruritus. NEURO: No numbness, tingling, memory loss, confusion, or headaches. PSYCH: No behavior or mood changes. PFSH <PATRICIA Saldaña - Last Filed: 02/13/19 21:53> Medical History Cardiac arrest (Acute) Coronary artery disease (Acute) Hyperlipidemia (Acute) Hypertension (Acute) Past heart attack (Acute) Systolic heart failure (Acute) Surgical History H/O heart artery stent (Acute) History of back surgery (Acute) History of tonsillectomy and adenoidectomy (Acute) Hx of appendectomy (Acute) Hx of cholecystectomy (Acute) Social History household members: spouse and children Smoking Status: Never smoker Social History household members: spouse and children Smoking Status: Never smoker Exam <PATRICIA Saldaña - Last Filed: 02/13/19 21:53> Initial Vital Signs Initial Vital Signs: Vital Signs Temperature 97.2 F L 02/13/19 10:55 Pulse Rate 90 02/13/19 10:55 Respiratory Rate 13 02/13/19 10:55 Blood Pressure 117/83 02/13/19 10:55 Pulse Oximetry 94 02/13/19 10:55 PHYSICAL EXAMINATION: GENERAL: Well groomed, alert, and cooperative. 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 Vital signs noted. HENT: Normocephalic, atraumatic. Hearing intact. Oral mucosa is pink and moist. EYES: Conjunctiva pink, sclera white, no periorbital swelling. CARDIOVASCULAR: S1 and S2 sounds normal. Regular rate and rhythm. Grade 3 systolic murmur noted. No clicks or bruits. RESPIRATORY: Normal respiratory rate, trachea midline, airway patent. No stridor, nasal flaring or accessory muscle use. Lungs sounds decreased in bases, no crackles or wheezes heard. GASTROINTESTINAL: Bowel sounds normoactive. Abdomen is soft and non-tender. No organomegaly, no palpable masses. Difficult to exam due to body habitus and obesity. MUSCULOSKELETAL: Normal gait and coordination. Equal tone and mass bilaterally. EXTREMITIES: CMS intact, no pedal edema. SKIN: Warm, dry, soft, appropriate color for ethnicity. No lesions, rashes, or wounds. NEURO: Alert and Oriented X 3. Good coordination. No ataxia, or sensory deficits, or cognitive issues. PSYCH: Appropriate affect and mood. <Joselo Birch DO - Last Filed: 02/14/19 08:15> Initial Vital Signs Initial Vital Signs: Vital Signs Temperature 97.2 F L 02/13/19 10:55 Pulse Rate 90 02/13/19 10:55 Respiratory Rate 13 02/13/19 10:55 Blood Pressure 117/83 02/13/19 10:55 Pulse Oximetry 94 02/13/19 10:55 Course <PATRICIA Saldaña - Last Filed: 02/13/19 21:53> Course Narrative: During the course of her stay in the emergency department, patient had 3 episodes of diarrhea that were stool and not significantly watery. Patient was able to get up and transfer to the commode with minor assistance. During part of the stay her oxygen saturation decreased to 89 and 90% on room air, respiratory therapy was called to provide incentive spirometer therapy as her chest x-ray showed atelectasis. After this patient's oxygen saturation improved to 93 and 94% on room air. Patient continued to deny shortness of breath or chest pain at this time. Patient's stool was sent to the lab, she was told that she will get a call if the cultures were abnormal. The lab reported to not have an adequate sample for C diff, nursing staff discussed with labs as they had stool. Patient was instructed follow up with her primary care provider. Family and patient continued to push for admission. And extensive 20 minutes conversation was had with patient and family that she was not a candidate for admission due to her normal labs, normal imaging, and ability to transfer to the commode. Both nursing staff and provider spoke with patient multiple times about this. Eventually, patient understood, was encouraged to follow up with her primary care provider for request for home healthcare as she feels like that was needed. I also spoke to the geriatric social work professor, who stated they are not able to prescribe primary care out of the emergency department due to lack of follow-up. Orders Ordered: Discontinued Medications Sodium Chloride (Normal Saline 0.9%) 500 mls @ 1,000 mls/hr IV BOLUS ONE Stop: 02/13/19 12:27 Last Infusion: 02/13/19 13:05 Dose: 0 mls/hr Admin: 02/13/19 12:02 Dose: 1,000 mls/hr Ondansetron HCl (Zofran) 4 mg IV NOW ONE Stop: 02/13/19 11:13 Last Admin: 02/13/19 11:31 Dose: 4 mg Ondansetron HCl (Zofran) 4 mg IV NOW ONE Stop: 02/13/19 16:14 Last Admin: 02/13/19 16:20 Dose: 4 mg Reevaluation(s) Reevaluation #1: Patient alert and awake, sitting up in bed, able to transfer to the commode, denies any symptoms at this time other than diarrhea. Consultations Consultation #1: Patient staffed with Dr. Birch, discussion with geriatric social work professor also occurred. Vital Signs - 8 hr 02/13/19 14:06 02/13/19 15:29 02/13/19 15:30 Pulse Rate 87 78 75 Respiratory Rate 17 18 22 Blood Pressure [Left Arm] 112/67 121/73 Pulse Oximetry 94 93 93 02/13/19 16:00 02/13/19 16:31 Pulse Rate 91 H Respiratory Rate Blood Pressure [Left Arm] 106/74 106/74 Pulse Oximetry 95 <Joselo Birch DO - Last Filed: 02/14/19 08:15> Orders Ordered: Discontinued Medications Sodium Chloride (Normal Saline 0.9%) 500 mls @ 1,000 mls/hr IV BOLUS ONE Stop: 02/13/19 12:27 Last Infusion: 02/13/19 13:05 Dose: 0 mls/hr Admin: 02/13/19 12:02 Dose: 1,000 mls/hr Ondansetron HCl (Zofran) 4 mg IV NOW ONE Stop: 02/13/19 11:13 Last Admin: 02/13/19 11:31 Dose: 4 mg Ondansetron HCl (Zofran) 4 mg IV NOW ONE Stop: 02/13/19 16:14 Last Admin: 02/13/19 16:20 Dose: 4 mg Vital Signs - 8 hr 02/13/19 14:06 02/13/19 15:29 02/13/19 15:30 Pulse Rate 87 78 75 Respiratory Rate 17 18 22 Blood Pressure [Left Arm] 112/67 121/73 Pulse Oximetry 94 93 93 02/13/19 16:00 02/13/19 16:31 Pulse Rate 91 H Respiratory Rate Blood Pressure [Left Arm] 106/74 106/74 Pulse Oximetry 95 MDM - Nausea/Vomiting/Diarrhea <PATRICIA Saldaña - Last Filed: 02/13/19 21:53> Medical Records Attestation: I reviewed the patient's medical records. Lab Data Attestation: I reviewed the patient's lab results. Result diagrams: 02/13/19 11:20 02/13/19 11:20 Lab Results 02/13/19 02/13/19 02/13/19 Range/Units 11:20 11:20 11:20 WBC 5.8 (4.5-11.0) X10^3/uL RBC 4.84 (4.0-5.2) X10^6/uL Hgb 15.0 (12.0-16.0) g/dL Hct 45.1 (36-46) % MCV 93.2 (80-100) fL MCH 31.1 (26-34) PG MCHC 33.4 (30-36) % RDW 13.2 (11.6-14.8) % Plt Count 137 L (150-400) X10^3/uL Neut % (Auto) 75.7 H (50-75) % Lymph % (Auto) 12.2 L (25-40) % [place] % (Auto) 10.3 (3-14) % Eos % (Auto) 1.2 L (2-4) % Baso % (Auto) 0.6 (0-2) % Neut # (Auto) 4400 (3599-4005) /uL Lymph # (Auto) 700 L (3073-4999) /uL [place] # (Auto) 600 (0-900) /uL Eos # (Auto) 100 (0-450) /uL Baso # (Auto) 0 (0-100) /uL PT 12.3 (10.1-12.7) SECONDS INR 1.1 (0.9-1.3) APTT 33 (26.4-36.2) SECONDS Sodium 142 (137-145) mmol/L Potassium 3.9 (3.4-5.1) mmol/L Chloride 107 (98-107) mmol/L Carbon Dioxide 24 (22-32) mmol/L BUN 22 H (7-17) mg/dL Creatinine 0.80 (0.52-1.04) mg/dL Estimated GFR > 60.0 (>60) mL/min BUN/Creatinine Ratio 27.5 H (6-22) Glucose 119 H (80-110) mg/dL Calcium 9.6 (8.4-10.2) mg/dL Total Bilirubin 0.8 (0.2-1.3) mg/dL AST 34 (14-36) IU/L ALT 40 (9-52) IU/L Alkaline Phosphatase 98 (38-126) U/L Total Creatine Kinase (30-135) U/L CK-MB (CK-2) CK-MB (CK-2) Rel Index Troponin I (0.01-0.034) ng/mL Total Protein 7.1 (6.3-8.2) g/dL Albumin 4.2 (3.5-5.0) g/dL Globulin 2.9 (1.7-4.1) g/dL Albumin/Globulin Ratio 1.4 (1.0-2.8) Gastric Fluid pH (1-2) pH Gastric Occult Blood (NEGATIVE) 02/13/19 02/13/19 Range/Units 11:20 12:15 WBC (4.5-11.0) X10^3/uL RBC (4.0-5.2) X10^6/uL Hgb (12.0-16.0) g/dL Hct (36-46) % MCV (80-100) fL MCH (26-34) PG MCHC (30-36) % RDW (11.6-14.8) % Plt Count (150-400) X10^3/uL Neut % (Auto) (50-75) % Lymph % (Auto) (25-40) % [place] % (Auto) (3-14) % Eos % (Auto) (2-4) % Baso % (Auto) (0-2) % Neut # (Auto) (2662-0238) /uL Lymph # (Auto) (1006-6801) /uL [place] # (Auto) (0-900) /uL Eos # (Auto) (0-450) /uL Baso # (Auto) (0-100) /uL PT (10.1-12.7) SECONDS INR (0.9-1.3) APTT (26.4-36.2) SECONDS Sodium (137-145) mmol/L Potassium (3.4-5.1) mmol/L Chloride (98-107) mmol/L Carbon Dioxide (22-32) mmol/L BUN (7-17) mg/dL Creatinine (0.52-1.04) mg/dL Estimated GFR (>60) mL/min BUN/Creatinine Ratio (6-22) Glucose (80-110) mg/dL Calcium (8.4-10.2) mg/dL Total Bilirubin (0.2-1.3) mg/dL AST (14-36) IU/L ALT (9-52) IU/L Alkaline Phosphatase (38-126) U/L Total Creatine Kinase 35 (30-135) U/L CK-MB (CK-2) TNP CK-MB (CK-2) Rel Index TNP Troponin I < 0.012 (0.01-0.034) ng/mL Total Protein (6.3-8.2) g/dL Albumin (3.5-5.0) g/dL Globulin (1.7-4.1) g/dL Albumin/Globulin Ratio (1.0-2.8) Gastric Fluid pH 5-7 H (1-2) pH Gastric Occult Blood Negative (NEGATIVE) Point of Care Testing Stool Occult Blood Negative Imaging Data Chest x-ray: Radiologist's impression: [address] [id number] XRay Report Signed Patient: Lucie Root LMR#: [id number] : 2At:[id number] Age/Sex: 78 / FDate of Service: 02/13/19 Loc: ED Accession Number: [id number] Procedure: XR chest 1V Ordering Provider: Jessie Martinez PROCEDURE: XR CHEST 1V INDICATIONS: Chest pain TECHNIQUE: One view of the chest was acquired. COMPARISON: [facility], , XR CHEST 1V, 01/05/2018, 18:25. FINDINGS: Surgical changes and devices: None. Lungs and pleura: Low lung volumes with scattered subsegmental atelectasis/scarring. No pleural effusions or pneumothorax. There are mild patchy retrocardiac opacities Mediastinum: Mediastinal contours appear normal. Heart size is normal. Bones and chest wall: No suspicious bony lesions. Overlying soft tissues appear unremarkable. IMPRESSION: Low lung volumes with scattered atelectasis/aspiration. Dictated by: Rafat Brown M.D. on 02/13/2019 at 12:12 Approved by: Rafat Brown M.D. on 02/13/2019 at 12:14 CT scan - abdomen: Radiologist's impression: [address] [address] [address] Scan Report Signed Patient: Lucie Root LMR#: [id number] : 2Acct:[id number] Age/Sex: 78 / FDate of Service: 02/13/19 Loc: ED Accession Number: [id number] Procedure: CT abdomen pelvis wo con Ordering Provider: Jessie Martinez PROCEDURE: CT ABDOMEN PELVIS WO CON INDICATIONS: Epigastric pain, allergy to IV contrast, black stool TECHNIQUE: After the administration of oral contrast, 5 mm thick sections acquired from the diaphragms to the symphysis. 5 mm coronal and sagittal reformats were performed. For radiation dose reduction, the following was used: automated exposure control, adjustment of mA and/or kV according to patient size. COMPARISON: [facility], CT, KIDNEY/ URETER/BLADDER, 07/15/2015, 15:09. FINDINGS: Image quality: Excellent. ABDOMEN: Lung bases: Lung bases are clear. Heart size is normal. Advanced coronary artery calcifications. Solid organs: Liver is normal in size. Gallbladder is surgically absent. Pancreas is normal in size. Spleen is normal in size. No adrenal nodules. Both kidneys are normal in size, without hydronephrosis or nephrolithiasis. Peritoneum and bowel: Again noted are is the presence of 2 separate duodenal diverticulae. The Sigmoid diverticulosis without evidence of diverticulitis. Bowel loops demonstrate normal wall thickness and caliber. No free fluid or air. Nodes and vessels: Stable peripancreatic lymph node. No retroperitoneal or mesenteric adenopathy by size criteria. Aorta and inferior vena cava are normal in size. Miscellaneous: No ventral hernias. PELVIS: Genitourinary: Bladder wall thickness is normal. Miscellaneous: Fat-containing left inguinal hernia again noted. No inguinal adenopathy. Bones: No suspicious bony lesions. No vertebral body compression fractures. IMPRESSION: 1. There are 2 diverticuli involving the duodenum, as previously noted 2. Remote cholecystectomy. 3. Advanced coronary artery disease. 4. Sigmoid diverticulosis. 5. Left inguinal hernia containing fat. Dictated by: Joey Helton M.D. on 02/13/2019 at 14:08 Approved by: Joey Helton M.D. on 02/13/2019 at 14:13 ECG Data Attestation: I personally reviewed and interpreted this ECG as follows: Interpretation: Normal sinus rhythm, rate 86, AR interval 179, QTC 451. Left axis deviation, left bundle branch block, no ectopy, no ST elevation or ST depression. EKG appears unchanged from last EKG on 01/05/2018. EKG also viewed by Dr. Birch. [facility] Narrative Medical decision making narrative: Unsure exact etiology of diarrhea, differential includes C diff (unlikely due to little risk factors-denies recent antibotic use, lack of watery diarrhea, and moderate frequency of stools versus severe), viral gastroenteritis, medication induced diarrhea (patient reports she was given you medication a week or so ago but does not remember the name), or inflammatory process such as colitis (less likely due to lack of blood in stools and recent onset). Very little concern for GI bleed as her Hemoccult and gastroccult were negative, little concern for bowel obstruction, perforation, appendicitis, hernia strangulation, or other acute abdominal issues due to negative CT and normal labs. Patient was instructed to follow up her primary care provider for further testing. The patient wanted to be admitted, she does not meet admission criteria and was instructed to call her primary care provider for close follow-up and initiation of home care or assisted living if needed. Patient started to return to the emergency department if symptoms worsen. She was given anti nausea medication at this time. She was also told that her stools culture was pending and she will receive a call if this is abnormal. <Joselo Birch, DO - Last Filed: 02/14/19 08:15> Lab Data Lab Results 02/13/19 02/13/19 02/13/19 Range/Units 11:20 11:20 11:20 WBC 5.8 (4.5-11.0) X10^3/uL RBC 4.84 (4.0-5.2) X10^6/uL Hgb 15.0 (12.0-16.0) g/dL Hct 45.1 (36-46) % MCV 93.2 (80-100) fL MCH 31.1 (26-34) PG MCHC 33.4 (30-36) % RDW 13.2 (11.6-14.8) % Plt Count 137 L (150-400) X10^3/uL Neut % (Auto) 75.7 H (50-75) % Lymph % (Auto) 12.2 L (25-40) % [place] % (Auto) 10.3 (3-14) % Eos % (Auto) 1.2 L (2-4) % Baso % (Auto) 0.6 (0-2) % Neut # (Auto) 4400 (9609-7946) /uL Lymph # (Auto) 700 L (6042-6564) /uL [place] # (Auto) 600 (0-900) /uL Eos # (Auto) 100 (0-450) /uL Baso # (Auto) 0 (0-100) /uL PT 12.3 (10.1-12.7) SECONDS INR 1.1 (0.9-1.3) APTT 33 (26.4-36.2) SECONDS Sodium 142 (137-145) mmol/L Potassium 3.9 (3.4-5.1) mmol/L Chloride 107 (98-107) mmol/L Carbon Dioxide 24 (22-32) mmol/L BUN 22 H (7-17) mg/dL Creatinine 0.80 (0.52-1.04) mg/dL Estimated GFR > 60.0 (>60) mL/min BUN/Creatinine Ratio 27.5 H (6-22) Glucose 119 H (80-110) mg/dL Calcium 9.6 (8.4-10.2) mg/dL Total Bilirubin 0.8 (0.2-1.3) mg/dL AST 34 (14-36) IU/L ALT 40 (9-52) IU/L Alkaline Phosphatase 98 (38-126) U/L Total Creatine Kinase (30-135) U/L CK-MB (CK-2) CK-MB (CK-2) Rel Index Troponin I (0.01-0.034) ng/mL Total Protein 7.1 (6.3-8.2) g/dL Albumin 4.2 (3.5-5.0) g/dL Globulin 2.9 (1.7-4.1) g/dL Albumin/Globulin Ratio 1.4 (1.0-2.8) Gastric Fluid pH (1-2) pH Gastric Occult Blood (NEGATIVE) 02/13/19 02/13/19 Range/Units 11:20 12:15 WBC (4.5-11.0) X10^3/uL RBC (4.0-5.2) X10^6/uL Hgb (12.0-16.0) g/dL Hct (36-46) % MCV (80-100) fL MCH (26-34) PG MCHC (30-36) % RDW (11.6-14.8) % Plt Count (150-400) X10^3/uL Neut % (Auto) (50-75) % Lymph % (Auto) (25-40) % [place] % (Auto) (3-14) % Eos % (Auto) (2-4) % Baso % (Auto) (0-2) % Neut # (Auto) (0413-2820) /uL Lymph # (Auto) (1078-4697) /uL [place] # (Auto) (0-900) /uL Eos # (Auto) (0-450) /uL Baso # (Auto) (0-100) /uL PT (10.1-12.7) SECONDS INR (0.9-1.3) APTT (26.4-36.2) SECONDS Sodium (137-145) mmol/L Potassium (3.4-5.1) mmol/L Chloride (98-107) mmol/L Carbon Dioxide (22-32) mmol/L BUN (7-17) mg/dL Creatinine (0.52-1.04) mg/dL Estimated GFR (>60) mL/min BUN/Creatinine Ratio (6-22) Glucose (80-110) mg/dL Calcium (8.4-10.2) mg/dL Total Bilirubin (0.2-1.3) mg/dL AST (14-36) IU/L ALT (9-52) IU/L Alkaline Phosphatase (38-126) U/L Total Creatine Kinase 35 (30-135) U/L CK-MB (CK-2) TNP CK-MB (CK-2) Rel Index TNP Troponin I < 0.012 (0.01-0.034) ng/mL Total Protein (6.3-8.2) g/dL Albumin (3.5-5.0) g/dL Globulin (1.7-4.1) g/dL Albumin/Globulin Ratio (1.0-2.8) Gastric Fluid pH 5-7 H (1-2) pH Gastric Occult Blood Negative (NEGATIVE) Point of Care Testing Stool Occult Blood Negative Discharge Plan Departure Patient Disposition: Home Clinical Impression: Diarrhea Qualifiers: Diarrhea type: unspecified type Qualified Code(s): R19.7 - Diarrhea, unspecified Discharge Date/Time: 02/13/19 17:17 Interventions: ED Discharge Assessment Last Done: 02/13/19 17:17 Instructions: Diarrhea, DI for Vomiting -- Adult Activity Restrictions/Additional Instructions: Thank you for entrusting me with your care today. As discussed, your lab results and CT scan are negative for acute or worrisome findings. Please follow up with your primary care provider in the next day or so for further evaluation. I prescribed a medication for nausea. Return to the emergency department if she develops chest pain, shortness of breath, excessive vomiting that does not resolve with the medication that was prescribed, dizziness, syncope, or severe abdominal pain. Prescriptions: New ondansetron 4 mg tablet,disintegrating 4 mg PO Q8H Qty: 10 RF: 0 No Action atorvastatin 40 mg tablet 40 mg PO DAILY RF: 0 potassium chloride 10 mEq tablet extended release 10 meq PO DAILY RF: 0 furosemide 20 mg tablet 20 mg PO DAILY RF: 0 metoprolol succinate 25 mg tablet extended release 24 hr 25 mg PO DAILY RF: 0 lisinopril 2.5 mg tablet 2.5 mg PO QPM RF: 0 aspirin 81 mg Tablet,Delayed Release (Dr/Ec) 81 mg PO DAILY RF: 0 magnesium tablet 1 tab PO DAILY RF: 0 multivitamin 1 tab PO DAILY RF: 0 cholecalciferol (vitamin D3) 2,000 unit Tablet 2,000 unit PO DAILY RF: 0 oxybutynin chloride 5 mg tablet 5 mg PO TID RF: 0 Referrals: Selene Spivey MD [Primary Care Provider] - <Joselo Birch DO - Last Filed: 02/14/19 08:15> Cosign ED Attending Cosignature Attestation: I was available for consultation during this patient's emergency department encounter
[2019-02-13 11:59] LABS: Creatine Kinase 35 U/L (30-135)
[2019-02-13] MEDS: SODIUM CHLORIDE 0.9% 500 ML 1000 ML IV (12:02)
[2019-02-13 12:12] LABS: Troponin I < 0.012 ng/mL (0.01-0.034)
--- NOTE | 2019-02-13 12:50 | DI.CT.S_ITS ---
PROCEDURE: CT ABDOMEN PELVIS WO CON INDICATIONS: Epigastric pain, allergy to IV contrast, black stool TECHNIQUE: After the administration of oral contrast, 5 mm thick sections acquired from the diaphragms to the symphysis. 5 mm coronal and sagittal reformats were performed. For radiation dose reduction, the following was used: automated exposure control, adjustment of mA and/or kV according to patient size. COMPARISON: [facility], CT, KIDNEY/ URETER/BLADDER, 07/15/2015, 15:09. FINDINGS: Image quality: Excellent. ABDOMEN: Lung bases: Lung bases are clear. Heart size is normal. Advanced coronary artery calcifications. Solid organs: Liver is normal in size. Gallbladder is surgically absent. Pancreas is normal in size. Spleen is normal in size. No adrenal nodules. Both kidneys are normal in size, without hydronephrosis or nephrolithiasis. Peritoneum and bowel: Again noted are is the presence of 2 separate duodenal diverticulae. The Sigmoid diverticulosis without evidence of diverticulitis. Bowel loops demonstrate normal wall thickness and caliber. No free fluid or air. Nodes and vessels: Stable peripancreatic lymph node. No retroperitoneal or mesenteric adenopathy by size criteria. Aorta and inferior vena cava are normal in size. Miscellaneous: No ventral hernias. PELVIS: Genitourinary: Bladder wall thickness is normal. Miscellaneous: Fat-containing left inguinal hernia again noted. No inguinal adenopathy. Bones: No suspicious bony lesions. No vertebral body compression fractures. IMPRESSION: 1. There are 2 diverticuli involving the duodenum, as previously noted 2. Remote cholecystectomy. 3. Advanced coronary artery disease. 4. Sigmoid diverticulosis. 5. Left inguinal hernia containing fat. Dictated by: Joey Helton M.D. on 02/13/2019 at 14:08 Approved by: Joey Helotn M.D. on 02/13/2019 at 14:13
[2019-02-13 12:55] LABS: Occult Blood Gastric Fluid NEGATIVE (NEGATIVE)
== END 2019-02-13 17:17 | disposition home or self-care (01) ==
PROVIDERS: Emergency Medicine; Emergency Provider Nurse Practitioner; PCP Internal Medicine
DX: R19.7 Diarrhea, unspecified (principal); R07.9 Chest pain, unspecified
CPT/HCPCS: 36591; 71045; 74176; 74177; 80053; 82271; 82272; 82550; 83986; 84484; 85025; 85610; 85730; 93005; 96361; 96374; 96376; 99285; J2405; Q9967

== ENCOUNTER 2019-02-19 03:30 | Observation (INO) | payer MEDICARE, SELFPAY ==
[2019-01-02 13:47] VITALS: BMI 41.5
[2019-02-19] VITALS (22 sets, daily range): BP systolic 85–135; BP diastolic 41–95; PULSE 78–114; RESP 11–20; TEMP 36.2–37; O2SAT 92–98; BMI 43.0
--- NOTE | 2019-02-19 | DI.ECHO.S_ITS ---
[facility] +---------+ : : [address] : : : : [id number] : : : : Phone: [phone] Echocardiogram Report + + :Name: KOKI MUÑOZ Study Date: 02/19/2019 Height: 62 in : :[facility] Weight: 235 lb : : Gender: Female BSA: 2.0 m2 : :: 1940 Age: 78 yrs BP: 116/72 mmHg: :Reason For Study: CHEST PAIN : :Ordering Physician: Brian : :Hospitalist Performed By: Pilar Greer : :Referring: MARYELLEN HANEY : + + Interpretation Summary The study quality was technically difficult. The left ventricle is not well visualized. The left ventricle is hyperdynamic. The ejection fraction is estimated to be 70-75%. 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 An intracavitary gradient is suspected. The right ventricle grossly appears normal in size with probable normal systolic function. The mitral valve is not well visualized.There is moderate to severe mitral annular calcification. The mitral valve mean gradient is 13 mmHg. With mean gradient appears to be significant mitral stenosis however with pressure half-time mitral valve area about 2.1 internal medicine nurse practitioner? which do not suggest significant mitral stenosis. The aortic valve is not well visualized. The aortic valve is moderately calcified. The peak aortic velocity is 3.4 m/sec. The aortic valve mean gradient is 30 mmHg. The calculated aortic valve area is 1.2 cm2. At least moderate . The IVC is of normal diameter and collapses greater than 50% with a sniff. This suggests a low right atrial pressure of 3 mm Hg. Consider ALEJANDRA for better evaluation of mitral valve and aortic valve pathology. Procedure: A two-dimensional transthoracic echocardiogram with color flow and Doppler was performed. The study quality was technically difficult. There is no prior echocardiogram noted for this patient. A contrast injection of Definity was performed to improve assessment of LV function. The patient was in normal sinus rhythm during the exam. Left Ventricle: The left ventricle is not well visualized. The echo findings are consistent with left ventricular outflow obstruction. 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 An intracavitary gradient is suspected. The left ventricle is hyperdynamic. The ejection fraction is estimated to be 70-75%. There are no obvious focal wall motion abnormalities noted but poor endocardial definition reduces the sensitivity for the detection of such. Diastolic function could not be accurately assessed due to confounding valvular disease. Right Ventricle: The right ventricle grossly appears normal in size with probable normal systolic function. Atria: The left atrium is severely dilated. Right atrium not well visualized. There is no Doppler evidence for an interatrial shunt. Mitral Valve: The mitral valve leaflets are moderately calcified. There is moderate to severe mitral annular calcification. The mitral valve is not well visualized. The mitral valve mean gradient is 13 mmHg. There is trace mitral regurgitation. Aortic Valve: The aortic valve is moderately calcified. The aortic valve is not well visualized. At least moderate . The calculated aortic valve area is 1.2 cm2. The peak aortic velocity is 3.4 m/sec. The aortic valve mean gradient is 30 mmHg. No aortic regurgitation is present. Tricuspid Valve: The tricuspid valve is not well visualized. Pulmonary artery pressures cannot be estimated because of the lack of a measurable TR jet velocity. There is trace tricuspid regurgitation. Pulmonic Valve: The pulmonic valve is not well visualized. Great Vessels: The aortic root is normal size. The ascending aorta could not be visualized. The aortic arch could not be visualized. The pulmonary is not well visualized. The IVC is of normal diameter and collapses greater than 50% with a sniff. This suggests a low right atrial pressure of 3 mm Hg. Pericardium/ Pleura There is no pericardial effusion. There is no pleural effusion. MMode/2D Measurements & Calculations LVOT diam: 2.0 cm LA A2 area: 35.3 cm2 Ao root diam: 3.1 cm LA A4 area: 40.7 cm2 LA length (vol): 8.3 cm LA vol: 146.9 ml LA vol index: 71.8 ml/m2 IVC diam: 1.5 cm TAPSE: 2.6 cm Doppler Measurements & Calculations Ao V2 max: 335.1 cm/sec LVOT Max Neri: 138.7 cm/sec Ao V2 mean: 262.5 cm/sec LV V1 max P.7 mmHg Ao max P.9 mmHg LV V1 VTI: 25.1 cm Ao mean P.6 mmHg BALTAZAR(I,D): 1.2 cm2 Ao V2 VTI: 66.0 cm BALTAZAR(V,D): 1.3 cm2 sev ratio: 0.38 BALTAZAR indexed to BSA (cm^2/m^2): 0.58 MV E max neri: 139.6 cm/sec PA V2 max: 84.2 cm/sec MV A max neri: 250.0 cm/sec PA V2 mean: 59.3 cm/sec MV E/A: 0.56 PA mean P.6 mmHg Med Peak E' Neri: 3.1 cm/sec PA Accel Time: 0.09 sec E/E' med: 45.7 Lat Peak E' Neri: 3.8 cm/sec E/E' lat: 36.8 E/e' average: 41.3 MV dec time: 0.36 sec MVA(VTI): 1.5 cm2 MV V2 mean: 172.0 cm/sec SV(LVOT): 77.9 ml MV mean P.0 mmHg MV V2 VTI: 50.5 cm Reading Physician:STAN
--- NOTE | 2019-02-19 03:46 | DI.RAD.S_ITS ---
PROCEDURE: XR CHEST 1V INDICATIONS: chest pain TECHNIQUE: One view of the chest was acquired. COMPARISON: None. FINDINGS: Surgical changes and devices: None. Lungs and pleura: Lungs are clear. No pleural effusions or pneumothorax. Mediastinum: Mediastinal contours appear normal. Heart size is normal. Bones and chest wall: No suspicious bony lesions. Overlying soft tissues appear unremarkable. IMPRESSION: No acute cardiopulmonary findings. Dictated by: Liz Ross M.D. on 02/19/2019 at 7:02 Approved by: Liz Ross M.D. on 02/19/2019 at 7:02
[2019-02-19] MEDS: SODIUM CHLORIDE 0.9% 1,000 ML 150 ML IV (03:52)
[2019-02-19] MEDS: ASPIRIN 81 MG TAB 324 MG PO (03:52)
--- NOTE | 2019-02-19 03:53 | ED_ITS ---
HPI - Chest Pain General Chief Complaint: Chest Pain Stated Complaint: abdominal pain Time Seen by Provider: 02/19/19 03:37 Source: patient Mode of arrival: ambulatory Limitations: no limitations History of Present Illness HPI narrative: Patient is a 78-year-old female with history of coronary artery disease and stents who presents with epigastric pain. She says it woke her from her sleep of radiates of throughout between her shoulder blades. She has had this before in fact she was here on 02/13/2019 with similar pain however at that time she was having diarrhea and a little bit of vomiting as well. She had CT of her abdomen which did not show any acute abnormality. She was negative for C diff. She has not had any further vomiting or diarrhea since she was discharged. She was seen by her PCP last week and is actually scheduled to see him again on Wednesday (tomorrow). However the pain has gotten worse. She denies any shortness of breath diaphoresis. She says it is worse lying flat and better sitting up. She denies any dyspnea with exertion MD complaint: chest pain Onset: awoke with symptoms Pain location: substernal Quality: aching and heaviness Pain radiation: back Exacerbating factors: supine Related Data Home Medications Medication Instructions Recorded Confirmed aspirin 81 mg PO DAILY 01/05/18 01/05/18 atorvastatin 40 mg PO DAILY 01/05/18 02/13/19 cholecalciferol (vitamin D3) 2,000 unit PO DAILY 01/05/18 01/05/18 furosemide 20 mg PO DAILY 01/05/18 02/13/19 lisinopril 2.5 mg PO QPM 01/05/18 02/13/19 magnesium 1 tab PO DAILY 01/05/18 01/05/18 metoprolol succinate 25 mg PO DAILY 01/05/18 02/13/19 multivitamin 1 tab PO DAILY 01/05/18 01/05/18 potassium chloride 10 meq PO DAILY 01/05/18 02/13/19 oxybutynin chloride 5 mg PO TID 02/13/19 02/13/19 folic acid 800 mcg PO DAILY 02/19/19 02/19/19 Previous Rx's Medication Instructions Recorded ondansetron 4 mg PO Q8H #10 tab 02/13/19 Allergies Allergy/AdvReac Type Severity Reaction Status Date / Time egg Allergy Severe Anaphylaxis Verified 01/05/18 23:26 Penicillins Allergy Severe Anaphylaxis Verified 01/05/18 23:26 lovastatin Allergy Intermediate Verified 01/05/18 23:26 azithromycin Allergy Mild Verified 01/05/18 23:26 codeine [CODEINE] Allergy Mild Verified 01/05/18 23:26 Sulfa (Sulfonamide Allergy Mild Verified 01/05/18 23:26 Antibiotics) Barbiturates AdvReac Verified 01/05/18 23:27 Review of Systems Review of Systems ROS Unobtainable: All systems reviewed & are unremarkable except as noted in HPI and below Constitutional Denies chills, Denies fever(s), Denies lethargy and Denies weakness Eyes Denies change in vision, Denies eye discharge, Denies irritation and Denies loss of vision ENT Ears, Nose, Mouth, and Throat: Denies change in voice, Denies neck pain and Denies sore throat Cardiovascular Reports as per HPI, Denies dyspnea and Denies dyspnea on exertion Respiratory Denies cough, Denies dyspnea, Denies dyspnea on exertion and Denies wheezing Gastrointestinal Gastrointestinal: Reports abdominal pain (Epigastric), Denies change in bowel habits, Denies diarrhea, Denies nausea and Denies vomiting Genitourinary Denies hematuria, Denies flank pain, Denies urinary incontinence and Denies urinary urgency Musculoskeletal Denies neck pain Integumentary/Breasts Denies pruritus, Denies erythema, Denies rash and Denies wounds Neurologic Denies loss of vision and Denies weakness Allergic/Immunologic Denies wheezing [facility] Medical History Cardiac arrest (Acute) Coronary artery disease (Acute) Hyperlipidemia (Acute) Hypertension (Acute) Past heart attack (Acute) Systolic heart failure (Acute) Surgical History H/O heart artery stent (Acute) History of back surgery (Acute) History of tonsillectomy and adenoidectomy (Acute) Hx of appendectomy (Acute) Hx of cholecystectomy (Acute) Social History household members: spouse and children Smoking Status: Never smoker Social History household members: spouse and children Smoking Status: Never smoker Exam Initial Vital Signs Initial Vital Signs: Vital Signs Temperature 97.2 F L 02/19/19 03:33 Pulse Rate 95 H 02/19/19 03:33 Respiratory Rate 20 02/19/19 03:33 Blood Pressure 106/95 H 02/19/19 03:33 Pulse Oximetry 95 02/19/19 03:33 GENERAL: Alert elderly female appears in mild discomfort HEENT: Head atraumatic,EOMI, pupils reactive, face symmetric, moist mucous membranes CARDIOVASCULAR: Regular rate and rhythm without murmurs, rubs or gallops. No sternal pain RESPIRATORY: Breath sounds equal bilaterally, no wheezes rales or rhonchi. ABDOMEN: Soft, epigastric tenderness pain reproducible to touch. Normoactive bowel sounds all 4 quadrants. No guarding or rebound. EXTREMITIES: Normal range of motion, no clubbing or edema. Neurovascularly intact NEUROLOGICAL: Alert and oriented x4.Normal gait and speech. Cranial nerves II through XII grossly intact. SKIN: Warm, dry, no laceration, no petechiae, no rashes or lesions. Course Orders Ordered: ED Orders 02/19/19 EKG-12 Lead Stat EKG-12 Lead Stat 02/19/19 03:42 B Type Natriuretic Peptide Stat Complete Blood Count AUTO DIFF Stat Comprehensive Metabolic Panel Stat Lipase Stat Partial Thromboplastin Time Stat Prothrombin Time INR Stat Troponin & CK Cardiac Panel Stat 02/19/19 03:46 XR chest 1V Stat 02/19/19 04:17 CT angio chest abdomen pelvis Stat 02/19/19 05:44 Acetaminophen Stat 02/19/19 06:40 Troponin I Stat Sodium Chloride (Normal Saline 0.9%) 1,000 mls @ 150 mls/hr IV CONT KG Last Admin: 02/19/19 03:52 Dose: 150 mls/hr Discontinued Medications Aspirin (Aspirin Chew) 324 mg PO NOW ONE Stop: 02/19/19 03:47 Last Admin: 02/19/19 03:52 Dose: 324 mg Diphenhydramine HCl (Benadryl) 25 mg IV NOW ONE Stop: 02/19/19 04:20 Last Admin: 02/19/19 04:25 Dose: 25 mg Methylprednisolone (Solu-Medrol 125 Mg Vial) 125 mg IV NOW ONE Stop: 02/19/19 04:20 Last Admin: 02/19/19 04:25 Dose: 125 mg Nitroglycerin (Nitrostat) 0.4 mg SL NOW ONE Stop: 02/19/19 03:47 Last Admin: 02/19/19 03:54 Dose: 0.4 mg Vital Signs - 8 hr 02/19/19 03:33 02/19/19 03:54 02/19/19 03:55 Temperature 97.2 F L Pulse Rate 95 H 100 H 93 H Respiratory Rate 20 17 Blood Pressure 106/95 H 115/69 Blood Pressure [Right Arm] 115/69 Pulse Oximetry 95 02/19/19 03:59 02/19/19 04:00 02/19/19 04:51 Temperature Pulse Rate 106 H 95 H 84 Respiratory Rate 17 19 17 Blood Pressure 104/63 Blood Pressure [Right Arm] 128/73 104/56 L 125/65 Pulse Oximetry 93 92 97 02/19/19 05:00 02/19/19 06:00 Temperature Pulse Rate 92 H 79 Respiratory Rate 20 18 Blood Pressure Blood Pressure [Right Arm] 111/62 111/62 Pulse Oximetry 95 98 MDM - Chest Pain Lab Data Attestation: I reviewed the patient's lab results. Result diagrams: 02/19/19 03:42 02/19/19 03:42 Lab Results 02/19/19 02/19/19 02/19/19 Range/Units 03:42 03:42 03:42 WBC 7.5 (4.5-11.0) X10^3/uL RBC 4.71 (4.0-5.2) X10^6/uL Hgb 14.7 (12.0-16.0) g/dL Hct 43.6 (36-46) % MCV 92.5 (80-100) fL MCH 31.1 (26-34) PG MCHC 33.7 (30-36) % RDW 13.2 (11.6-14.8) % Plt Count 175 (150-400) X10^3/uL Neut % (Auto) 71.2 (50-75) % Lymph % (Auto) 19.0 L (25-40) % Craven % (Auto) 6.5 (3-14) % Eos % (Auto) 2.7 (2-4) % Baso % (Auto) 0.6 (0-2) % Neut # (Auto) 5300 (5392-0310) /uL Lymph # (Auto) 1400 (7385-7113) /uL Craven # (Auto) 500 (0-900) /uL Eos # (Auto) 200 (0-450) /uL Baso # (Auto) 0 (0-100) /uL PT 12.3 (10.1-12.7) SECONDS INR 1.1 (0.9-1.3) APTT 34 (26.4-36.2) SECONDS Sodium 139 (137-145) mmol/L Potassium 3.8 (3.4-5.1) mmol/L Chloride 104 (98-107) mmol/L Carbon Dioxide 26 (22-32) mmol/L BUN 31 H (7-17) mg/dL Creatinine 0.80 (0.52-1.04) mg/dL Estimated GFR > 60.0 (>60) mL/min BUN/Creatinine Ratio 38.8 H (6-22) Glucose 125 H (80-110) mg/dL Calcium 9.7 (8.4-10.2) mg/dL Total Bilirubin 1.1 (0.2-1.3) mg/dL AST 257 H (14-36) IU/L ALT 147 H (9-52) IU/L Alkaline Phosphatase 227 H D (38-126) U/L Total Creatine Kinase 34 (30-135) U/L CK-MB (CK-2) TNP CK-MB (CK-2) Rel Index TNP Troponin I < 0.012 (0.01-0.034) ng/mL B-Natriuretic Peptide < 100 (<100) Total Protein 7.1 (6.3-8.2) g/dL Albumin 4.1 (3.5-5.0) g/dL Globulin 3.0 (1.7-4.1) g/dL Albumin/Globulin Ratio 1.4 (1.0-2.8) Lipase 79 (23-300) U/L Acetaminophen (10-30) ug/mL 02/19/19 Range/Units 05:44 WBC (4.5-11.0) X10^3/uL RBC (4.0-5.2) X10^6/uL Hgb (12.0-16.0) g/dL Hct (36-46) % MCV (80-100) fL MCH (26-34) PG MCHC (30-36) % RDW (11.6-14.8) % Plt Count (150-400) X10^3/uL Neut % (Auto) (50-75) % Lymph % (Auto) (25-40) % Craven % (Auto) (3-14) % Eos % (Auto) (2-4) % Baso % (Auto) (0-2) % Neut # (Auto) (1397-9143) /uL Lymph # (Auto) (7031-5572) /uL Craven # (Auto) (0-900) /uL Eos # (Auto) (0-450) /uL Baso # (Auto) (0-100) /uL PT (10.1-12.7) SECONDS INR (0.9-1.3) APTT (26.4-36.2) SECONDS Sodium (137-145) mmol/L Potassium (3.4-5.1) mmol/L Chloride (98-107) mmol/L Carbon Dioxide (22-32) mmol/L BUN (7-17) mg/dL Creatinine (0.52-1.04) mg/dL Estimated GFR (>60) mL/min BUN/Creatinine Ratio (6-22) Glucose (80-110) mg/dL Calcium (8.4-10.2) mg/dL Total Bilirubin (0.2-1.3) mg/dL AST (14-36) IU/L ALT (9-52) IU/L Alkaline Phosphatase (38-126) U/L Total Creatine Kinase (30-135) U/L CK-MB (CK-2) CK-MB (CK-2) Rel Index Troponin I (0.01-0.034) ng/mL B-Natriuretic Peptide (<100) Total Protein (6.3-8.2) g/dL Albumin (3.5-5.0) g/dL Globulin (1.7-4.1) g/dL Albumin/Globulin Ratio (1.0-2.8) Lipase (23-300) U/L Acetaminophen < 10 L (10-30) ug/mL Imaging Data Chest x-ray: Attestation: I personally reviewed and interpreted this imaging study as follows: My impression: No acute cardiopulmonary process CT angio chest abdomen pelvis: Radiologist's impression: Night draft report: No acute abnormalities. Aorta is normal in caliber without dissection. Intermediate left thyroid now at [place]. Intermediate left adrenal nodule. Cholecystectomy. Intra hepatic and extrahepatic bile duct dilatation. No calcific coli Coombs cholelithiasis. Additional nonemergent findings described above Calcified splenic granuloma ECG Data Attestation: I personally reviewed and interpreted this ECG as follows: Prior ECG tracings: available for review Interpretation: Sinus rhythm left bundle-branch block rate 93 P are interval [address] elevations or depressions similar previous EKG D 2. Sinus rhythm rate 111 changes. MDM Narrative Medical decision making narrative: Patient's pain initially improved after nitroglycerin. She was overall feeling a little bit better. She certainly has multiple risk factors as and symptoms concerning for recurrent coronary artery disease, and this is her 2nd visit to the ED for similar symptoms. Liver enzymes are noted to be slightly more elevated than they were 1 week ago. However bilirubin is normal along with lipase and she has no right upper quadrant pain. Tylenol level is added which is negative. Patient has CT to rule out dissection. No dissection identified. Flavio GOMEZ in ED to see and evaluate patient. agrees with observation for chest pain rule out. Discharge Plan Departure Patient Disposition: Admitted as Observation Clinical Impression: Chest pain Qualifiers: Chest pain type: unspecified Qualified Code(s): R07.9 - Chest pain, unspecified Admit Date/Time: 02/19/19 06:12 Admit Provider: Ray Carranza
[2019-02-19] MEDS: NITROGLYCERIN 0.4 MG SL TAB SL ×2 (03:54→19:15)
[2019-02-19 03:57] LABS: Add Manual Diff / Slide Review NO; Basophils Absolute Auto 0 /uL (0-100); Basophils Percent Auto 0.6 % (0-2); Eosinophils Absolute Auto 200 /uL (0-450); Eosinophils Percent Auto 2.7 % (2-4); Hematocrit 43.6 % (36-46); Hemoglobin 14.7 g/dL (12.0-16.0); INR 1.1 (0.9-1.3); Lymphocytes Absolute Auto 1400 /uL (1100-4500); Mean Corpuscular HGB Conc 33.7 % (30-36); Mean Corpuscular Hemoglobin 31.1 PG (26-34); Mean Corpuscular Volume 92.5 fL (80-100); Monocytes Absolute Auto 500 /uL (0-900); Monocytes Percent Auto 6.5 % (3-14); Neutrophils Absolute Auto 5300 /uL (1500-7000); Neutrophils Percent Auto 71.2 % (50-75); Platelet Count 175 X10^3/uL (150-400); Prothrombin Time 12.3 SECONDS (10.1-12.7); Red Blood Cell Count 4.71 X10^6/uL (4.0-5.2); Red Cell Distribution Width 13.2 % (11.6-14.8); White Blood Cell Count 7.5 X10^3/uL (4.5-11.0)
[2019-02-19 04:00] LABS: PTT Partial Thromboplastin Tim 34 SECONDS (26.4-36.2)
[2019-02-19 04:01] LABS: Alanine Aminotransferase 147 IU/L (9-52); Albumin 4.1 g/dL (3.5-5.0); Albumin Globulin Ratio 1.4 (1.0-2.8); Alkaline Phosphatase 227 U/L (38-126); Aspartate Aminotransferase 257 IU/L (14-36); BUN Creatinine Ratio 38.8 (6-22); Bilirubin Total 1.1 mg/dL (0.2-1.3); Blood Urea Nitrogen 31 mg/dL (7-17); Calcium 9.7 mg/dL (8.4-10.2); Carbon Dioxide 26 mmol/L (22-32); Chloride 104 mmol/L (98-107); Creatine Kinase 34 U/L (30-135); Estimated Glomerular Filt Rate > 60.0 mL/min (>60); Glucose 125 mg/dL (80-110); HEMOLYSIS 45 (0-50); Lipase 79 U/L (23-300); Potassium 3.8 mmol/L (3.4-5.1); Sodium 139 mmol/L (137-145); Total Protein 7.1 g/dL (6.3-8.2)
[2019-02-19 04:13] LABS: Troponin I < 0.012 ng/mL (0.01-0.034)
[2019-02-19 04:14] LABS: B Type Natriuretic Peptide < 100 (<100)
--- NOTE | 2019-02-19 04:17 | DI.CT.S_ITS ---
PROCEDURE: CT ANGIO CHEST ABDOMEN PELVIS INDICATIONS: chest pain radiate to back TECHNIQUE: Precontrast 5 mm thick sections acquired from the lung apices to the iliac crests. After the administration of intravenous contrast, 2.5 mm thick sections again acquired from the lung apices to the iliac crests. Maximum intensity projection (MIP) oblique sagittal and coronal reformats were then acquired. For radiation dose reduction, the following was used: automated exposure control. COMPARISON: [facility], CT, KIDNEY/ URETER/BLADDER, 07/15/2015, 15:09. FINDINGS: Image quality: Excellent. AORTA: The aorta is normal size. Mild atheromatous calcifications are present throughout the thoracic and abdominal aorta. No aneurysmal dilatation. No intramural hematoma. No aortic dissection. There is mild tortuosity to the descending thoracic aorta. CHEST: Lungs and pleura: No acute airspace opacities. No pleural effusions or pneumothorax. Central and peripheral airways are patent and normal in caliber. Mediastinum: Heart size is normal. No pericardial effusion. No mediastinal or hilar adenopathy by size criteria. Central pulmonary arteries are normal in size. Esophagus is normal in caliber. No hiatal hernias. Bones and chest wall: No axillary adenopathy by size criteria. The right thyroid gland has normal appearance. There is a 1.6 x 3.2 cm hypodense nodule within the left thyroid lobe (series 4, image 17). No suspicious bony lesions. No vertebral body compression fractures. ABDOMEN: Vasculature: Celiac trunk and mesenteric arteries are patent. Renal arteries are also patent. Solid organs: Liver is normal in size and enhancement. Gallbladder is surgically absent. There is moderate central intrahepatic biliary ductal dilatation. The common bile duct measures up to 2.5 cm in diameter. No discrete mass or stone is visualized within the central bile duct. However, there is a probable 1.8 x 3.3 cm gas and debris filled duodenal diverticulum near the ampulla (series 4, image 109). Pancreas enhances normally. Spleen is normal in size and enhancement. No right-sided adrenal nodules. There is an intermediate density left adrenal gland nodule. This has a similar appearance to the study dated 07/15/15 suggesting the presence of an atypical adrenal adenoma. The kidneys demonstrate symmetric enhancement. There is cortical thinning and focal cortical scars throughout the right kidney suggesting prior infection or infarction. Peritoneum and bowel: No free fluid or air. Bowel loops are normal in caliber and wall thickness. A small duodenal diverticulum is present near the ampulla of Vater as described above. There is also a gas and debris-filled 5.7 x 4.4 cm duodenal diverticulum within the fourth portion of the duodenum. The appendix is not visualized; however there is no discrete right lower quadrant fluid or fat stranding to suggest acute appendicitis.There are extensive diverticula outpouchings of the sigmoid colon. No mucosal thickening or pericolonic fat stranding to suggest acute diverticulitis. Nodes and vessels: No retroperitoneal or mesenteric adenopathy by size criteria. Inferior vena cava is normal in morphology. Miscellaneous: No ventral hernias. PELVIS: Genitourinary: Bladder wall thickness is normal. Miscellaneous: No inguinal hernias or adenopathy. No ventral hernias. Bones: No suspicious bony lesions. No vertebral body compression fractures. IMPRESSION: 1. No aortic dissection, aneurysmal dilatation, or mural hematoma. 2. Moderate intrahepatic biliary ductal dilatation and marked dilatation of the common bile duct. Although no discrete obstruction is visualized within the central bile duct, there is a small duodenal diverticulum adjacent to the ampulla of Vater. It is unclear whether this may be causing mass effect on the central bile duct. 3. Diverticulosis. No acute diverticulitis. 4. The appendix is not visualized; however there are no ancillary findings to suggest acute appendicitis. 5. Left thyroid lobe nodule. Nonemergent thyroid ultrasound could be used to further characterize this finding. 6. Probable left adrenal adenoma. These findings are concordant with the overnight interpretation. Dictated by: Liz Ross M.D. on 02/19/2019 at 7:21 Approved by: Liz Ross M.D. on 02/19/2019 at 7:39
[2019-02-19] MEDS: diphenhydrAMINE 50 MG/ML VIAL 25 MG IV (04:25)
[2019-02-19] MEDS: methylPREDNISolone 125 MG/2 ML VIAL IV (04:25)
--- NOTE | 2019-02-19 04:53 | PC.NURSE ---
Pt premedicated for CT with solumederol and benedryl. Pt states she can't lie flat-- 12L O2 placed via NRB for duration of CT scan. Pt tolerated well. Pt transferred to CT on monitoring tech with RN. Pt now back in room with VSS.
[2019-02-19 06:18] LABS: Acetaminophen < 10 ug/mL (10-30)
--- NOTE | 2019-02-19 06:37 | PM.HP.1 ---
History of Present Illness Date Patient Seen: 02/19/19 Time Patient Seen: 06:05 Chief complaint: abdominal pain Narrative: Ms. Lucie Root is a 78 year old female with a history significant for 3 vessel cardiovascular disease, mi with stents, cardiac arrest, hyperlipidemia, and systolic heart failure who presents to the ER after waking up during the night with substernal and epigastric pain. She states her pain woke her from sleep and describes it as heavy pressure with sharp and stabbing pains. She states the pain radiates through to her back and denies radiation to arms or neck. She has a prior history of anterior lateral and inferior MIs. She denies complaints of nausea vomiting though she did take a Zofran that was prescribed on 02/13/2019 when she was diagnosed with a gastroenteritis because she thought she would be nauseated. She denies complaints of palpitations, diaphoresis or shortness of breath. She describes this pain is different than her previous cardiac pain and is worse with movement and is worse with movement and improved with pressure between her shoulder blades or on her epigastrium. The patient denies complaints of fevers chills head congestion or sore throat. She denies palpitations and is orthopneic typically sleeping on 3 pillows at night. She complains of epigastric pain radiating through to her back but denies nausea vomiting and has had changes in stooling over the last few days describing black diarrhea that brought her in on 02/13/2019 followed by constipation. She denies complaints of dysuria or hematuria. She reports a history of bilateral pedal edema. Upon arrival in the ER the patient has a temperature 97.2?, heart rate of 95, blood pressure 106/95, respiratory rate of 20 and oxygen saturation 95% on room air. The patient had EKG done which shows a normal sinus rhythm unchanged from previous EKGs without signs of ischemia. The patient is taken for CTA to rule out dissection which is found to be negative. The patient had a CT of the abdomen completed on 02/13/2019 finding 2 duodenal diverticuli and sigmoid diverticulosis, a left inguinal fat containing hernia and advanced cardiovascular disease. On laboratory studies the patient has white catherine count of 7.5 hemoglobin of 14.7, hematocrit of 43.6, and platelets of 175. Her electrolytes are within normal limits with a BUN of 31 and creatinine of 0.8, a non fasting glucose of 125. Her liver functions are found to be total bilirubin of 1.1 with an AST of 257, ALT of 147 and alkaline phosphatase of 227. This is compared to lab studies of 02/13/2019 where she had a total bilirubin of 0.8, AST of 34, ALT of 40 and alkaline phosphatase of 98. She has had 2 troponins which have been negative and has a total CK of 34 and lipase of 79. Her coags within normal limits and has a negative BNP. The patient is admitted to the hospital for further evaluation and cardiac monitoring. Patient History Medical History Cardiac arrest (Acute) Coronary artery disease (Acute) Hyperlipidemia (Acute) Hypertension (Acute) Past heart attack (Acute) Systolic heart failure (Acute) Surgical History H/O heart artery stent (Acute) History of back surgery (Acute) History of tonsillectomy and adenoidectomy (Acute) Hx of appendectomy (Acute) Hx of cholecystectomy (Acute) Social History household members: spouse and children Smoking Status: Never smoker Family & Social History Social History: household members spouse,children Safety & Behavioral: Feels Safe in Current Yes Environment Tobacco & Substance use: Smoking Status Never smoker alcohol intake frequency 0-2 drinks per day Substance Use Type does not use Comment: The patient lives in a 2 story house with 14 steps to the 2nd floor with her to whom she has been for 53 years. She endorses a strong family history of cardiovascular disease with father having multiple strokes and heart attacks as well as her mother with cardiovascular disease and heart attacks. Her brother at 39 from an PA and her sister at 53 from diabetes and epilepsy. Smoking: The patient denies smoking Alcohol: The patient denies alcohol consumption Substance use: The patient denies recreational pharmaceuticals, use of herbal or cannabis products. Advanced directives: In direct conversation with the patient she states her wish to be FULL CODE. She designates her son Bernard to be her surrogate decision maker. Meds Home Medications Medication Instructions Recorded Confirmed Type aspirin 81 mg PO DAILY 01/05/18 01/05/18 History atorvastatin 40 mg PO DAILY 01/05/18 02/19/19 History cholecalciferol (vitamin D3) 2,000 unit PO DAILY 01/05/18 02/19/19 History furosemide 20 mg PO DAILY 01/05/18 02/19/19 History lisinopril 2.5 mg PO QPM 01/05/18 02/19/19 History magnesium 1 tab PO DAILY 01/05/18 01/05/18 History metoprolol succinate 25 mg PO DAILY 01/05/18 02/19/19 History multivitamin 1 tab PO DAILY 01/05/18 02/19/19 History potassium chloride 10 meq PO DAILY 01/05/18 02/19/19 History ondansetron 4 mg PO Q8H #10 tab 02/13/19 02/19/19 Rx oxybutynin chloride 5 mg PO TID 02/13/19 02/13/19 History folic acid 800 mcg PO DAILY 02/19/19 02/19/19 History Allergies Allergy/AdvReac Type Severity Reaction Status Date / Time egg Allergy Severe Anaphylaxis Verified 01/05/18 23:26 Penicillins Allergy Severe Anaphylaxis Verified 01/05/18 23:26 lovastatin Allergy Intermediate Verified 01/05/18 23:26 azithromycin Allergy Mild Verified 01/05/18 23:26 codeine [CODEINE] Allergy Mild Verified 01/05/18 23:26 Sulfa (Sulfonamide Allergy Mild Verified 01/05/18 23:26 Antibiotics) Barbiturates AdvReac Verified 01/05/18 23:27 Review of Systems Review of Systems All systems reviewed & are unremarkable except as noted in HPI and below Exam Vital Signs (past 8 hours): - 02/19/19 03:33 02/19/19 03:54 02/19/19 03:55 Temperature 97.2 F L Pulse Rate 95 H 100 H 93 H Respiratory Rate 20 17 Blood Pressure 106/95 H 115/69 Blood Pressure [Right Arm] 115/69 Pulse Oximetry 95 02/19/19 03:59 02/19/19 04:00 02/19/19 04:51 Temperature Pulse Rate 106 H 95 H 84 Respiratory Rate 17 19 17 Blood Pressure 104/63 Blood Pressure [Right Arm] 128/73 104/56 L 125/65 Pulse Oximetry 93 92 97 02/19/19 05:00 02/19/19 06:00 Temperature Pulse Rate 92 H 79 Respiratory Rate 20 18 Blood Pressure Blood Pressure [Right Arm] 111/62 111/62 Pulse Oximetry 95 98 Oxygen Delivery Method Room Air Narrative Exam Narrative: GENERAL APPEARANCE: well developed, morbidly obese with a BMI of 43.0, in no acute distress. HEAD: Normocephalic, atraumatic, no scalp lesions. EYES: pupils equal, round, reactive to light and accommodation, sclera non-icteric, extraocular movement intact without nystagmus. EARS: normal external structures, no ear pain NOSE: sinuses non tender to percussion, no rhinorrhea ORAL CAVITY: mucosa moist without lesions or exudate THROAT: Posterior pharynx poorly visualized, no lesions or erythema noted NECK/THYROID: neck supple, no jugular venous distention, no carotid bruit, no thyromegaly, trachea midline. LYMPH NODES: no cervical or supraclavicular lymphadenopathy. SKIN: warm and dry, no suspicious lesions, no rashes, good turgor. HEART: regular rate and rhythm, holosystolic murmur, no rubs or gallops, 3-4 second capillary refill bilateral feet, trace to 1+ lower extremity edema LUNGS: clear to auscultation bilaterally, no coarseness crackles or wheezing, no cough present CHEST: Symmetrical movement, no accessory muscle use, no pain to AP and lateral compression. ABDOMEN: Soft, epigastric tenderness on palpation, no organomegaly, exam limited by body habitus, active bowel tones. BACK: Normal curvature, reproducible pain between shoulder blades midthoracic without palpable muscle spasms, no CVA tenderness on percussion EXTREMITIES: moves all extremities, strength is 5/5 and symmetrical, no deformities or joint effusions. NEUROLOGIC: AAO x4, no focal neurologic deficits, cranial nerves II-XII grossly intact , motor strength normal upper and lower extremities, sensory exam intact to light touch, hearing grossly normal to speech. PSYCH: alert, tangential thought, poor eye contact Objective Labs Result Diagrams: 02/19/19 03:42 02/19/19 03:42 Labs: Laboratory Results - last 24 hr 02/19/19 02/19/19 02/19/19 03:42 03:42 03:42 WBC 7.5 RBC 4.71 Hgb 14.7 Hct 43.6 MCV 92.5 MCH 31.1 MCHC 33.7 RDW 13.2 Plt Count 175 Neut % (Auto) 71.2 Lymph % (Auto) 19.0 L Nicholas % (Auto) 6.5 Eos % (Auto) 2.7 Baso % (Auto) 0.6 Neut # (Auto) 5300 Lymph # (Auto) 1400 Nicholas # (Auto) 500 Eos # (Auto) 200 Baso # (Auto) 0 PT 12.3 INR 1.1 APTT 34 Sodium 139 Potassium 3.8 Chloride 104 Carbon Dioxide 26 BUN 31 H Creatinine 0.80 Estimated GFR > 60.0 BUN/Creatinine Ratio 38.8 H Glucose 125 H Calcium 9.7 Total Bilirubin 1.1 AST 257 H ALT 147 H Alkaline Phosphatase 227 H D Total Creatine Kinase 34 CK-MB (CK-2) TNP CK-MB (CK-2) Rel Index TNP Troponin I < 0.012 B-Natriuretic Peptide < 100 Total Protein 7.1 Albumin 4.1 Globulin 3.0 Albumin/Globulin Ratio 1.4 Lipase 79 Acetaminophen 02/19/19 05:44 WBC RBC Hgb Hct MCV MCH MCHC RDW Plt Count Neut % (Auto) Lymph % (Auto) Nicholas % (Auto) Eos % (Auto) Baso % (Auto) Neut # (Auto) Lymph # (Auto) Nicholas # (Auto) Eos # (Auto) Baso # (Auto) PT INR APTT Sodium Potassium Chloride Carbon Dioxide BUN Creatinine Estimated GFR BUN/Creatinine Ratio Glucose Calcium Total Bilirubin AST ALT Alkaline Phosphatase Total Creatine Kinase CK-MB (CK-2) CK-MB (CK-2) Rel Index Troponin I B-Natriuretic Peptide Total Protein Albumin Globulin Albumin/Globulin Ratio Lipase Acetaminophen < 10 L Assessment & Plan Assessment & Plan narrative: The patient is admitted to the hospital related to substernal and epigastric pain with strong family and personal cardiac history for further evaluation and monitoring. 1. Acute epigastric pain, probable gastritis, present on admission. -patient awakens from sleep with epigastric and substernal chest pain radiating through to the back. No complaints of nausea vomiting, no acid taste in the mouth. -patient seen on 02/13/2019 in the ER diagnosed with gastroenteritis. -patient with do diverticulum in the duodenum, dilated hepatic common ducts with acute elevation of LFTs since her last visit. -patient started on Protonix 40 mg daily, will consider possibility of MRCP and need for surgical consult. 2. Acute Chest pain, present on admission. -Patient has personal history of 3 vessel CAD, previous cardiac arrest, and coronary stents. -she describes her current pain is different from her previous cardiac episodes, pain radiates through to the back with no shoulder or neck pain, no palpitations. -2 sets of troponin are negative. Serial EKG was sinus tachycardia, sinus rhythm and left bundle branch block, Q-waves in lead 2 and AVF, and V3 through 6. -will obtain echocardiogram and nuclear med stress test. -will order nitroglycerin sublingual and morphine IV as needed for chest pain -continue patient's home regimen of lisinopril 2.5 mg in the evening and metoprolol 25 mg daily. 3. Acute constipation, present on admission -patient provides history on 02/13 a presenting with black diarrhea stool and diagnosed with a gastroenteritis, H&H has remained stable with no evidence of GI bleeding. -patient reports subsequently complaining of constipation passing small stool that she states is white in color. Patient is dehydrated related to Lasix therapy for systolic heart failure. -CT scan reveals significant stool burden. -treat with MiraLax and stool softeners. 3. Chronic systolic heart failure, stable. -patient has orthopnea baseline with 3 pillows and denies change in respiratory status and has no cough. She has trace to 1+ bilateral pedal edema. -patient is on home regimen of furosemide 20 mg daily though the patient states she has decrease the dose to 3 times per week. Will continue Lasix 20 mg daily. -patient takes 10 mEq of potassium with her Lasix which will be continued and electrolytes will be monitored. 4. Chronic hyperlipidemia, stable -will continue home regimen of atorvastatin 40 mg daily. The patient is admitted to the hospital due to the complexity of her medical history and risk for complications and adverse events. The patient is admitted observation status with expected length of stay to be less than 2 midnights. Time Spent With Patient Time with patient: 25 - 35 minutes
[2019-02-19 07:02] LABS: Cholesterol 118 mg/dL (140-199); HDL Cholesterol 36 mg/dL (40-60); LDL Cholesterol Calculated 58 mg/dL (<100); Triglycerides 121 mg/dL (35-150)
[2019-02-19 07:07] LABS: Magnesium 1.7 mg/dL (1.6-2.3)
[2019-02-19 07:14] LABS: Troponin I < 0.012 ng/mL (0.01-0.034)
[2019-02-19] MEDS: FOLIC ACID 0.4 MG TABLET 0.8 MG PO (10:20)
[2019-02-19] MEDS: BISACODYL 10 MG SUPP PR (10:20)
[2019-02-19] MEDS: FUROSEMIDE 20 MG TABLET PO (10:26)
[2019-02-19] MEDS: METOPROLOL ER 25 MG TABLET PO (10:26)
[2019-02-19] MEDS: POLYETHYLENE GLYCOL 3350 17 GM POWD.PACK PO (10:26)
[2019-02-19] MEDS: SENNOSIDES 8.6 MG TABLET 17.2 MG PO (10:27)
--- NOTE | 2019-02-19 10:50 | PC.NURSE ---
Addendum entered by Yana Alejandre R.N. 02/19/19 12:49: GI - after suppos and laxatives, assist x 2 person w/gait belt to br, void and small smear stool w/flatus. Original Note: ADMISSION - arrived via [place], pt has hx brain stem injury and her gait causes her to dramatically lurch forward at times and is unsteady, per pt doesn't use fww at home as it would wobble, uses marte to assist at home, occassional speech stutter, talkative, mid epigastric discomfort has resolved, states discomfort less than a 1, flor diet, no nausea, ra 94%, coarse crackles lower lobes, 2+ pedal edema, p 86, 133/89, given laxatives this am and assisted to bsc w/void, ret to chair w/alarm set.
--- NOTE | 2019-02-19 13:51 | PT.IIE ---
Surgical History (Last Reviewed 02/19/19 @ 06:50 by PATRICIA Romero) H/O heart artery stent (Acute) History of back surgery (Acute) History of tonsillectomy and adenoidectomy (Acute) Hx of appendectomy (Acute) Hx of cholecystectomy (Acute) Medical History (Last Reviewed 02/19/19 @ 06:50 by PATRICIA Romero) Cardiac arrest (Acute) Coronary artery disease (Acute) Hyperlipidemia (Acute) Hypertension (Acute) Past heart attack (Acute) Systolic heart failure (Acute) Physical Therapy Inpatient Evaluation/Re-Eval M1 PT/OT-IP Prior Functional Status Start: 02/19/19 13:15 Freq: NEEDED Status: Active Protocol: Document 02/19/19 13:00 IJS (Rec: 02/19/19 13:51 IJS [id number]) Medical Review Prior Functional Status Medical History Reviewed Yes Mobility and Gait Independent but needs to use marte or solid objects to hold onto. Does not do well with an assistive device. Reports having 1 fall a year ago while taking out the garbage. Activities of Daily Living and IADL's Independent, use of tub chair to shower. Prior Functional Level (Other details) Has been unsteady all of her life but is convinced she is not going to fall. Anything that is not solid causes her to lurch forward and back during gait. Sleeps with 3 pillows under her chest to help avoid chest pain. Can lay down for a few hours at a time. Can stand up tro 2 minutes holding onto a counter or wall. Social History Household Members spouse children Living Arrangements House Number of Floors (Floors) Two Floors Number of Stairs To Enter/Railing? 14 steps in the home and 1 step entry from the garage. She reports going up/down the stairs sideways and uses the wall and railing. Home Environment Standard Height Toilet Tub/Shower Home Equipment Grab Bars In Shower Employment Status Retired M2 PT-IP Current Condition Start: 02/19/19 13:15 Freq: NEEDED Status: Active Protocol: Document 02/19/19 13:00 IJS (Rec: 02/19/19 13:51 IJS [id number]) Physical Therapy Current Condition Current Condition Evaluation Date 02/19/19 Treatment Diagnosis Walking gait disturbance admitted from ER today with chest pain. Onset Date 02/19/19 Weight Bearing Status Weight Bearing Status Weight Bear as Tolerated M3 PT-IP Subjective Start: 02/19/19 13:15 Freq: NEEDED Status: Active Protocol: Document 02/19/19 13:00 IJS (Rec: 02/19/19 13:51 IJS [id number]) Subjective Physical Therapy Visit Type Type Initial Evaluation Visit Start Time 13:00 Visit Stop Time 13:25 Total Visit Minutes 25 Physical Therapy Visit Comments Patient Comments I need to keep moving and walking, I promise I will not fall. Patient Goals Return home when medically stable. Therapy Pain Assessment Pain Present Pain Present Denied Pain M4 PT-IP Mobility and Gait Start: 02/19/19 13:15 Freq: NEEDED Status: Active Protocol: Document 02/19/19 13:00 IJS (Rec: 02/19/19 13:51 IJS [id number]) PT-Transfer Assessment Sit to and From Stand Sit to and from Stand Standby Assistance Contact Guard Assistance Equipment Transfer Assistive Device None Gait Belt Orthotic/Prosthetic Devices or Brace: No Transfers Transfer Destination Chair Transfer Technique Stand Step Pivot Transfer Ability Level of Assist Standby Assistance Contact Guard Assistance Gait Assessment Gait Gait Assistance Required: Contact Guard Assist Able to Maintain Weight Bearing Status Yes During Gait Assistive Devices Assistive Device Gait Belt Orthotic/Prosthetic Devices or Brace: No Gait Deviations General Gait Pattern Wide Based Gait Factors Limiting Gait Function Factors Limiting Gait Function Abnormal Tonal Influences Poor Balance Comments Gait Comments Is very chatty and is determined to be independent. Upon initial sit to stand she lurches her upper body forward and back to gain balance and holds onto secure objects. PT-Balance Assessment Sitting Balance and Reactions Static Sitting Balance Ability Normal Dynamic Sitting Balance Ability Normal Standing Balance and Reactions Static Standing Balance Ability Fair Dynamic Standing Balance Ability Fair Device Used marte and counters - any secure object M5 PT-IP Objective Assessments Start: 02/19/19 13:15 Freq: NEEDED Status: Active Protocol: Document 02/19/19 13:00 IJS (Rec: 02/19/19 13:51 IJS [id number]) Orientation Orientation/Cognition Level of Alertness Alert Orientation Name Age Birthday Month Date Year Day of Week Place Situation Language Function Ability No Deficits Noted Memory Description No Deficits Noted Comments chair alarm on for safety Gross Range of Motion Upper Extremity ROM Assessment Right Impaired Impairments tremors of the right UE with movement Lower Extremity ROM Assessment Within Functional Limits Strength Upper Extremity Strength Assessment Within Functional Limits Lower Extremity Strength Assessment Within Functional Limits Coordination Assessment Gross Coordination Gross Coordination Impaired Assessment Foot Tapping Test Normal Performance Coordination Comments Mostly trunk instability with standing/walking Sensation Assessment Sensation Gross Sensation WNL Muscle Tone Muscle Tone WNL Yes Other Assessments Other Other Assessments On RA 02 sat. 94%, HR 88 M6 PT-IP Treatment Start: 02/19/19 13:15 Freq: NEEDED Status: Active Protocol: Document 02/19/19 13:00 IJS (Rec: 02/19/19 13:51 IJS [id number]) Physical Therapy Treatment Exercises Exercises Ankle Pumps Shoulder Flexion Elbow Flexion/Extension Education Education Provided Safety Other Treatments Other Treatment Performed Gait x 100' using the hospital marte, counters, bed to steady herself. M7 PT-IP Assessment and Plan Start: 02/19/19 13:15 Freq: NEEDED Status: Active Protocol: Document 02/19/19 13:00 IJS (Rec: 02/19/19 13:51 IJS [id number]) PT Summary Assessment and Plan Potential Rehabilitation Potential Good Status of Condition at Evaluation Stable Summary Impairments Balance Gait Activity Tolerance Assessment Summary Day of admit patient is steady with gait if holding onto the marte, moves qickly from point A to point B especially if there is a gap in the hallway. Goals Bed Mobility Goal Independent Transfer Goal Independent Gait Goal Standby Assistance Gait Distance 150 Other Goals Up/down steps with use of wall and railing. From the garage she enters using the doorway for support. Days to Meet Goals 3 Frequency of Treatment Frequency Of Treatment Once a Day Treatment Plan Physical Therapy Treatment Plan Bed Mobility Training Transfer Training Gait Training Therapeutic Exercise Discharge Planning Neuromuscular Re-ed Recommendations To Nursing Amount of Assist Needed 2 Person Assist Discharge Recommendations PT Discharge Recommendations Home with Assistance
--- NOTE | 2019-02-19 15:36 | CM.IDA ---
Initial DCP Assessment Note: Pt is a 78 yo female, resident of [place].Pt here under observation for acute abd pain and chest pain, recently diagnosed with gastroenteritis. PCP: Selene Spivey Payer: Medicare/[employer]. Met w/pt this morning, explained SW role. Pt is a very pleasant and talkative person, explains she plans to return home tomorrow. Pt is indp and fairly active at baseline but admits to having more difficulty moving around and standing for very long, she loses balance easily. Pt's spouse does the cooking, family and friends living locally assist as needed. Pt/spouse have one biological adult son that lives in [place] but according to pt, they have taken care and adopted many children. P: DC back home w/supportive friends and family and close outpt f/u. Following closely in case DC needs or concerns arise. PAOLA Mata Discharge Planning/Care Management Advanced directive, confirm from FAMILY Start: 02/19/19 08:28 Freq: Q24H Status: Active Protocol: Document 02/19/19 08:28 NEE (Rec: 02/19/19 09:37 NEE [id number]) Advance Directive, confirm on record Time 09:00 Person contacted patient Copy received No CM Discharge Assessment Start: 02/19/19 15:31 Freq: Status: Active Protocol: Document 02/19/19 15:31 ANTONIO (Rec: 02/19/19 15:36 ANTONIO [id number]) Discharge Planning Assessment Assigned Brown Sourer Shavonne Read DPOA/Assigned Designee Name Salas Root Contact Information [phone] Advance Directives? Yes History Provided By Patient Prior Living Arrangements House Household Members spouse children Type of transporation used prior to Drives own vehicle admit Independent with ADL's Yes Is patient alert and oriented? Yes Barriers to Discharge No Discharge Plan Home Transportation Arrangement Spouse Referrals Initiated None needed Whiteboard Updated in Patient Room with Yes name and ext. # of Brown Sourer Review Status In Process
[2019-02-19] MEDS: ATORVASTATIN 20 MG TABLET 40 MG PO (17:19)
[2019-02-19] MEDS: LISINOPRIL 5 MG TABLET 2.5 MG PO (17:19)
[2019-02-19] MEDS: ASPIRIN EC 81 MG TABLET PO (17:19)
[2019-02-19] MEDS: MAG HYDROX/ALUM/SIMETH 30 ML UDC PO (17:24)
[2019-02-19 19:09] LABS: Creatine Kinase 30 U/L (30-135)
[2019-02-19 19:22] LABS: Troponin I < 0.012 ng/mL (0.01-0.034)
[2019-02-19 20:07] LABS: Alanine Aminotransferase 673 IU/L (9-52); Albumin 4.1 g/dL (3.5-5.0); Albumin Globulin Ratio 1.4 (1.0-2.8); Alkaline Phosphatase 271 U/L (38-126); Aspartate Aminotransferase 567 IU/L (14-36); BUN Creatinine Ratio 41.4 (6-22); Bilirubin Total 0.6 mg/dL (0.2-1.3); Blood Urea Nitrogen 29 mg/dL (7-17); Calcium 9.7 mg/dL (8.4-10.2); Carbon Dioxide 26 mmol/L (22-32); Chloride 101 mmol/L (98-107); Estimated Glomerular Filt Rate > 60.0 mL/min (>60); Globulin 2.9 g/dL (1.7-4.1); Glucose 205 mg/dL (80-110); HEMOLYSIS 20 (0-50); Potassium 4.3 mmol/L (3.4-5.1); Sodium 139 mmol/L (137-145)
[2019-02-19] MEDS: SODIUM CHLORIDE 0.9% FLUSH 10 ML IV (20:22)
--- NOTE | 2019-02-19 21:02 | PC.NURSE ---
Addendum entered by Elyssa Mccormack R.N. 02/19/19 23:28: Report called to [facility] by Gabrielle SHI. Pt informed ambulance to arrive within 40 minutes. Pt c/o frontal headache pain 8/10. Discussed with PATRICIA Carranza and gave one time dose 650 mg tylenol as per order. Returned to bed, darkened room and ice to forehead. Bed alarm in place. Addendum entered by Elyssa Mccormack R.N. 02/19/19 22:12: PATRICIA Carranza reports to this scientific writer hospitalist and GI specialist at [facility] have accepted pt. Pt remains up in chair. Spouse has checked in and left for the evening. Addendum entered by Elyssa Mccormack R.N. 02/19/19 21:17: Awaiting bed availability to [facility] this evening shift. Original Note: Pt requests assistance to toilet at beginning of shift. Requires two staff members to help stabilize pt as pt flails trunk and extremities when attempting to mobilize out of bed. Pt able to stand and flailing continues momentarily and then ceases. Pt is able to ambulate into bathroom using staff for support. This scenario repeats as pt is assisted into chair. Alarm in place for pt safety. Dr. Avendano was informed of this issue with mobilizing. Pt c/o epigastric pain while eating evening meal and was given maalox without relief. Single nitroglycerin SL improved pain 2-3/10. Salon Designer, [place], informs this scientific writer pt is being transferred to [facility] for ERCP. Pt was informed and has multiple questions nursing cannot answer. Dillon GOMEZ into see patient and address pt's concerns. Pt's spouse is in and out of room. Encouraged to stay in room for hospitalist visit. PATRICAI was informed of pt's vital signs this shift.
--- NOTE | 2019-02-19 22:15 | PM.DS.1 ---
History of Present Illness Chief complaint: abdominal pain Narrative: Ms. Lucie Root is a 78 year old female with a history significant for 3 vessel cardiovascular disease, mi with stents, cardiac arrest, hyperlipidemia, and systolic heart failure who presents to the ER after waking up during the night with substernal and epigastric pain. She states her pain woke her from sleep and describes it as heavy pressure with sharp and stabbing pains. She states the pain radiates through to her back and denies radiation to arms or neck. She has a prior history of anterior lateral and inferior MIs. She denies complaints of nausea vomiting though she did take a Zofran that was prescribed on 02/13/2019 when she was diagnosed with a gastroenteritis because she thought she would be nauseated. She denies complaints of palpitations, diaphoresis or shortness of breath. She describes this pain is different than her previous cardiac pain and is worse with movement and is worse with movement and improved with pressure between her shoulder blades or on her epigastrium. The patient denies complaints of fevers chills head congestion or sore throat. She denies palpitations and is orthopneic typically sleeping on 3 pillows at night. She complains of epigastric pain radiating through to her back but denies nausea vomiting and has had changes in stooling over the last few days describing black diarrhea that brought her in on 02/13/2019 followed by constipation. She denies complaints of dysuria or hematuria. She reports a history of bilateral pedal edema. Upon arrival in the ER the patient has a temperature 97.2?, heart rate of 95, blood pressure 106/95, respiratory rate of 20 and oxygen saturation 95% on room air. The patient had EKG done which shows a normal sinus rhythm unchanged from previous EKGs without signs of ischemia. The patient is taken for CTA to rule out dissection which is found to be negative. The patient had a CT of the abdomen completed on 02/13/2019 finding 2 duodenal diverticuli and sigmoid diverticulosis, a left inguinal fat containing hernia and advanced cardiovascular disease. On laboratory studies the patient has white catherine count of 7.5 hemoglobin of 14.7, hematocrit of 43.6, and platelets of 175. Her electrolytes are within normal limits with a BUN of 31 and creatinine of 0.8, a non fasting glucose of 125. Her liver functions are found to be total bilirubin of 1.1 with an AST of 257, ALT of 147 and alkaline phosphatase of 227. This is compared to lab studies of 02/13/2019 where she had a total bilirubin of 0.8, AST of 34, ALT of 40 and alkaline phosphatase of 98. She has had 2 troponins which have been negative and has a total CK of 34 and lipase of 79. Her coags within normal limits and has a negative BNP. The patient is admitted to the hospital for further evaluation and cardiac monitoring. Discharge Providers Date of admission: 02/19/19 06:12 Discharge Date: 02/19/19 Primary care physician: Selene Spivey MD Consults: 02/19/19 06:29 Consult to Dietitian, Adult Routine Comment: Reason For Exam: Morbid Obesity 02/19/19 06:33 Consult to Discharge Planning Routine Comment: Consult to Occupational Therapy Evaluate & Treat Comment: Morbid obesity, disequilibrium Physician Instructions: Evaluate and treat Consult to Physical Therapy Evaluate & Treat Comment: Morbid obesity, disequilibrium Physician Instructions: Evaluate and Treat Discharge provider: PATRICIA Romero Summary Discharge Diagnosis: 1. Acute epigastric pain, probable gastritis, present on admission. 2. Acute elevated transaminases with inter hepatic ambulatory ductal dilatation. 3. Coronary artery disease status post anterior lateral and inferior [place] status post cardiac arrest and stent placement, stable 4. Chronic systolic heart failure, stable. 5. Acute constipation, active 6. Chronic hyperlipidemia, stable Hospital Course: The patient was admitted for epigastric pain with radiation through to the mid back. In the ER the patient underwent a chest and abdominal CT to rule out dissection with the following findings: 1. No aortic dissection, aneurysmal dilatation, or mural hematoma. 2. Moderate intrahepatic biliary ductal dilatation and marked dilatation of the common bile duct. Although no discrete obstruction is visualized within the central bile duct, there is a small duodenal diverticulum adjacent to the ampulla of Vater. It is unclear whether this may be causing mass effect on the central bile duct. 3. Diverticulosis. No acute diverticulitis. 4. The appendix is not visualized; however there are no ancillary findings to suggest acute appendicitis. 5. Left thyroid lobe nodule. Nonemergent thyroid ultrasound could be used to further characterize this finding. 6. Probable left adrenal adenoma. The patient continues to have epigastric pain not improved with oral antacids or Protonix though improved with sublingual nitro. She reports no complaints of nausea vomiting and has had no fevers or chills. Transaminases were rechecked within finding a total bilirubin remaining normal at 0.6, AST increased from [id number], ALT increased from 147-673 and alkaline phosphatase increased from 227-271. Consulted been obtained from Dr. Tovar, general surgery, who felt the patient be best served by transfer and that MRCP at this time would likely not benefit the patient is likely in need of therapeutic procedure. Through the course hospitalization since this morning the patient is serial troponins which have remained negative, no complaints of shortness of breath or EKG changes with EKG consistent with prior tracings. She had an echocardiogram finding: The left ventricle is not well visualized. The left ventricle is hyperdynamic. The ejection fraction is estimated to be 70-75%. 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 An intracavitary gradient is suspected. Spoke with Dr. Srinivasan, GI specialist at [facility] who agreed the patient warranted transfer. Spoke with Dr. Edwards, Hospitalist at [facility] and reviewed the case findings and will be the accepting provider. The patient's be transferred to [facility] via ALS ambulance related to the patient's significant cardiac history, continue pain and evolving medical condition. Status at Discharge Cognitive/behavioral status at discharge: oriented Functional status at discharge: uses cane/walker (Unsteady gait, mid minimal ambulation) Overall status at discharge: other (Epigastric pain unresolved, worsening transaminitis) Time Spent with Patient Less than 30 minutes Exam Vital Signs (past 8 hours): - 02/19/19 16:00 02/19/19 17:19 02/19/19 19:14 Temperature 98.1 F Pulse Rate 87 87 105 H Respiratory Rate 18 Blood Pressure 135/78 135/78 85/51 L Pulse Oximetry 95 95 02/19/19 19:15 02/19/19 19:29 02/19/19 19:36 Temperature Pulse Rate 105 H 90 78 Respiratory Rate Blood Pressure 88/57 L 94/41 L 100/59 L Pulse Oximetry 92 94 02/19/19 20:00 02/19/19 20:16 Temperature 98.4 F Pulse Rate 105 H 90 Respiratory Rate 16 Blood Pressure 88/57 L 94/41 L Pulse Oximetry 93 Oxygen Delivery Method Room Air Narrative Exam Narrative: Exam Narrative: GENERAL APPEARANCE: well developed, morbidly obese with a BMI of 43.0, in no acute distress. HEENT: Normocephalic, Pupils TALITA, sclera non-icteric, no rhinorrhea, mucosa moist without lesions or exudate NECK/THYROID: neck supple, no jugular venous distention, trachea midline. SKIN: warm and dry, no suspicious lesions, no rashes, good turgor. HEART: regular rate and rhythm, holosystolic murmur, no rubs or gallops, 3-4 second capillary refill bilateral feet, trace to 1+ lower extremity edema LUNGS: clear to auscultation bilaterally, no coarseness crackles or wheezing, no cough present CHEST: Symmetrical movement, no accessory muscle use ABDOMEN: Soft, obese, epigastric tenderness on palpation, active bowel tones. BACK: Normal curvature, reproducible pain between shoulder blades midthoracic without palpable muscle spasms, no CVA tenderness on percussion EXTREMITIES: moves all extremities, strength upper extremities 5/5, bilateral lower extremities 4/5 and symmetrical, no deformities or joint effusions. NEUROLOGIC: AAO x4, cranial nerves II-XII grossly intact , sensory exam intact to light touch, PSYCH: alert, tangential thought, good eye contact Objective Labs Result Diagrams: 02/19/19 03:42 02/19/19 18:23 Labs: Laboratory Results - last 24 hr 02/19/19 02/19/19 02/19/19 03:42 03:42 03:42 WBC 7.5 RBC 4.71 Hgb 14.7 Hct 43.6 MCV 92.5 MCH 31.1 MCHC 33.7 RDW 13.2 Plt Count 175 Neut % (Auto) 71.2 Lymph % (Auto) 19.0 L [place] % (Auto) 6.5 Eos % (Auto) 2.7 Baso % (Auto) 0.6 Neut # (Auto) 5300 Lymph # (Auto) 1400 [place] # (Auto) 500 Eos # (Auto) 200 Baso # (Auto) 0 PT 12.3 INR 1.1 APTT 34 Sodium 139 Potassium 3.8 Chloride 104 Carbon Dioxide 26 BUN 31 H Creatinine 0.80 Estimated GFR > 60.0 BUN/Creatinine Ratio 38.8 H Glucose 125 H Calcium 9.7 Magnesium Total Bilirubin 1.1 AST 257 H ALT 147 H Alkaline Phosphatase 227 H D Total Creatine Kinase 34 CK-MB (CK-2) TNP CK-MB (CK-2) Rel Index TNP Troponin I < 0.012 B-Natriuretic Peptide < 100 Total Protein 7.1 Albumin 4.1 Globulin 3.0 Albumin/Globulin Ratio 1.4 Triglycerides Cholesterol LDL Cholesterol, Calc HDL Cholesterol Lipase 79 Acetaminophen 02/19/19 02/19/19 02/19/19 05:44 06:40 06:43 WBC RBC Hgb Hct MCV MCH MCHC RDW Plt Count Neut % (Auto) Lymph % (Auto) [place] % (Auto) Eos % (Auto) Baso % (Auto) Neut # (Auto) Lymph # (Auto) [place] # (Auto) Eos # (Auto) Baso # (Auto) PT INR APTT Sodium Potassium Chloride Carbon Dioxide BUN Creatinine Estimated GFR BUN/Creatinine Ratio Glucose Calcium Magnesium 1.7 Total Bilirubin AST ALT Alkaline Phosphatase Total Creatine Kinase CK-MB (CK-2) CK-MB (CK-2) Rel Index Troponin I < 0.012 B-Natriuretic Peptide Total Protein Albumin Globulin Albumin/Globulin Ratio Triglycerides Cholesterol LDL Cholesterol, Calc HDL Cholesterol Lipase Acetaminophen < 10 L 02/19/19 02/19/19 02/19/19 06:43 18:23 18:23 WBC RBC Hgb Hct MCV MCH MCHC RDW Plt Count Neut % (Auto) Lymph % (Auto) [place] % (Auto) Eos % (Auto) Baso % (Auto) Neut # (Auto) Lymph # (Auto) [place] # (Auto) Eos # (Auto) Baso # (Auto) PT INR APTT Sodium 139 Potassium 4.3 Chloride 101 Carbon Dioxide 26 BUN 29 H Creatinine 0.70 Estimated GFR > 60.0 BUN/Creatinine Ratio 41.4 H Glucose 205 H Calcium 9.7 Magnesium Total Bilirubin 0.6 AST 567 H ALT 673 H Alkaline Phosphatase 271 H Total Creatine Kinase 30 CK-MB (CK-2) TNP CK-MB (CK-2) Rel Index TNP Troponin I < 0.012 B-Natriuretic Peptide Total Protein 7.0 Albumin 4.1 Globulin 2.9 Albumin/Globulin Ratio 1.4 Triglycerides 121 Cholesterol 118 L LDL Cholesterol, Calc 58 HDL Cholesterol 36 L Lipase Acetaminophen Discharge Plan Discharge Plan Patient Disposition: Home Discharge comment: Transfer to [facility] for higher level of care under GI service. Discharge Med Rec/Prescriptions Prescriptions: Continued atorvastatin 40 mg tablet 40 mg PO DAILY RF: 0 potassium chloride 10 mEq tablet extended release 10 meq PO DAILY RF: 0 furosemide 20 mg tablet 20 mg PO DAILY RF: 0 metoprolol succinate 25 mg tablet extended release 24 hr 25 mg PO DAILY RF: 0 lisinopril 2.5 mg tablet 2.5 mg PO QPM RF: 0 aspirin 81 mg Tablet,Delayed Release (Dr/Ec) 2 tab PO BEDTIME RF: 0 magnesium tablet 1 tab PO DAILY RF: 0 multivitamin 1 tab PO DAILY RF: 0 cholecalciferol (vitamin D3) 2,000 unit Tablet 2,000 unit PO DAILY RF: 0 ondansetron 4 mg tablet,disintegrating 4 mg PO Q8H Qty: 10 RF: 0 folic acid 800 mcg Tablet 800 mcg PO DAILY RF: 0 Follow up/Referrals: Selene Spivey MD [Primary Care Provider] - Provider Discharge Instructions Diet comment: NPO Discharge Data Primary Care Provider: Selene Spivey Attending Provider: Ray Carranza Admit Date/Time: 02/19/19 06:12 Quality VTE Deep Vein Thrombosis/Pulmonary Embolism Present on Admission: No
--- NOTE | 2019-02-19 22:18 | P.DS_ITS ---
History of Present Illness Chief complaint: abdominal pain Narrative: Ms. Lucie Root is a 78 year old female with a history significant fo r 3 vessel cardiovascular disease, mi with stents, cardiac arrest, hyperlipidemia, and systolic heart failure who presents to the ER after waking up during the night with substernal and epigastric pain. She states her pain woke her from sleep and describes it as heavy pressure with sharp and stabbing pains. She states the pain radiates through to her back and denies radiation to arms or neck. She has a prior history of anterior lateral and inferior MIs. She denies complaints of nausea vomiting though she did take a Zofran that was prescribed on 02/13/2019 when she was diagnosed with a gastroenteritis because she thought she would be nauseated. She denies complaints of palpitations, diap horesis or shortness of breath. She describes this pain is different than her previous cardiac pain and is worse with movement and is worse with movement and improved with pressure between her shoulder blades or on her epigastrium. The patient denies complaints of fevers chills head congestion or sore throat. She denies palpitations and is orthopneic typically sleeping on 3 pillows at night. She complains of epigastric pain radiating through to her back but denies nausea vomiting and has had changes in stooling over the last few days describing black diarrhea that brought her in on 02/13/2019 followed by constipation. She denies complaints of dysuria or hematuria. She reports a history of bilateral pedal edema. Upon arrival in the ER the patient has a temperature 97.2?, heart rate of 95, blood pressure 106/95, respiratory rate of 20 and oxygen saturation 95% on room air. The patient had EKG done which shows a normal sinus rhythm unchanged from previous EKGs without signs of ischemia. The patient is taken for CTA to rule out dissection which is found to be negative. The patient had a CT of the abdomen completed on 02/13/2019 finding 2 duodenal diverticuli and sigmoid diver ticulosis, a left inguinal fat containing hernia and advanced cardiovascular disease. On laboratory studies the patient has white catherine count of 7.5 hemoglobin of 14.7, hematocrit of 43.6, and platelets of 175. Her electrolytes are within normal limits with a BUN of 31 and creatinine of 0.8, a non fasting glucose of 125. Her liver functions are found to be total bilirubin of 1.1 with an AST of 257, ALT of 147 and alkaline phosphatase of 227. This is compared to lab studies of 02/13/2019 where she had a total bilirubin of 0.8, AST of 34, ALT of 40 and alkaline phosphatase of 98. She has had 2 troponins which have been negative and has a total CK of 34 and lipase of 79. Her coags within normal limits and has a negative BNP. The patient is admitted to the hospital for further evaluation and cardiac monitoring. Discharge Providers Date of admission: 02/19/19 06:12 Discharge Date: 02/19/19 Primary care physician: Selene Spivey MD Consults: 02/19/19 06:29 Consult to Dietitian, Adult Routine Comment: Reason For Exam: Morbid Obesity 02/19/19 06:33 Consult to Discharge Planning Routine Comment: Consult to Occupational Therapy Evaluate & Treat Comment: Morbid obesity, disequilibrium Physician Instructions: Evaluate and treat Consult to Physical Therapy Evaluate & Treat Comment: Morbid obesity, disequilibrium Physician Instructions: Evaluate and Treat Discharge provider: PATRICIA Romero Summary Discharge Diagnosis: 1. Acute epigastric pain, probable gastritis, present on admission. 2. Acute elevated transaminases with inter hepatic ambulatory ductal dilatation. 3. Coronary artery disease status post anterior lateral and inferior [place] status post cardiac arrest and stent placement, stable 4. Chronic systolic heart failure, stable. 5. Acute constipation, active 6. Chronic hyperlipidemia, stable Hospital Course: The patient was admitted for epigastric pain with radiation through to the mid back. In the ER the patient underwent a chest and abdominal CT to rule out dissection with the following findings: 1. No aortic dissection, aneurysmal dilatation, or mural hematoma. 2. Moderate intrahepatic biliary ductal dilatation and marked dilatation of the common bile duct. Although no discrete obstruction is visualized within the central bile duct, there is a small duodenal diverticulum adjacent to the ampulla of Vater. It is unclear whether this may be causing mass effect on the central bile duct. 3. Diverticulosis. No acute diverticulitis. 4. The appendix is not visualized; however there are no ancillary findings to suggest acute appendicitis. 5. Left thyroid lobe nodule. Nonemergent thyroid ultrasound could be used to further characterize this finding. 6. Probable left adrenal adenoma. The patient continues to have epigastric pain not improved with oral antacids or Protonix though improved with sublingual nitro. She reports no complaints of nausea vomiting and has had no fevers or chills. Transaminases were rechecked within finding a total bilirubin remaining normal at 0.6, AST increased from [id number], ALT increased from 147-673 and alkaline phosphatase increased from 227- 271. Consulted been obtained from Dr. Tovar, general surgery, who felt the patient be best served by transfer and that MRCP at this time would likely not benefit the patient is likely in need of therapeutic procedure. Through the course hospitalization since this morning the patient is serial troponins which have remained negative, no complaints of shortness of breath or EKG changes with EKG consistent with prior tracings. She had an echocardiogram finding: The left ventricle is not well visualized. The left ventricle is hyperdynamic. The ejection fraction is estimated to be 70-75%. 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 An intracavitary gradient is suspected. Spoke with Dr. Srinivasan, GI specialist at [facility] who agreed the patient warranted transfer. Spoke with Dr. Edwards, Hospitalist at [facility] and reviewed the case findings and will be the accepting provider. The patient's be transferred to [facility] via ALS ambulance related to the patient's significant cardiac history, continue pain and evolving medical condition. Status at Discharge Cognitive/behavioral status at discharge: oriented Functional status at discharge: uses cane/walker (Unsteady gait, mid minimal ambulation) Overall status at discharge: other (Epigastric pain unresolved, worsening t ransaminitis) Time Spent with Patient Less than 30 minutes Exam Vital Signs (past 8 hours): - 02/19/19 16:00 02/19/19 17:19 02/19/19 19:14 Temperature 98.1 F Pulse Rate 87 87 105 H Respiratory Rate 18 Blood Pressure 135/78 135/78 85/51 L Pulse Oximetry 95 95 02/19/19 19:15 02/19/19 19:29 02/19/19 19:36 Temperature Pulse Rate 105 H 90 78 Respiratory Rate Blood Pressure 88/57 L 94/41 L 100/59 L Pulse Oximetry 92 94 02/19/19 20:00 02/19/19 20:16 Temperature 98.4 F Pulse Rate 105 H 90 Respiratory Rate 16 Blood Pressure 88/57 L 94/41 L Pulse Oximetry 93 Oxygen Delivery Method Room Air Narrative Exam Narrative: Exam Narrative: GENERAL APPEARANCE: well developed, morbidly obese with a BMI of 43.0, in no acute distress. HEENT: Normocephalic, Pupils TALITA, sclera non-icteric, no rhinorrhea, mucosa moist without lesions or exudate NECK/THYROID: neck supple, no jugular venous distention, trachea midline. SKIN: warm and dry, no suspicious lesions, no rashes, good turgor. HEART: regular rate and rhythm, holosystolic murmur, no rubs or gallops, 3-4 second capillary refill bilateral feet, trace to 1+ lower extremity edema LUNGS: clear to auscultation bilaterally, no coarseness crackles or wheezing, no cough present CHEST: Symmetrical movement, no accessory muscle use ABDOMEN: Soft, obese, epigastric tenderness on palpation, active bowel tones. BACK: Normal curvature, reproducible pain between shoulder blades midthoracic without palpable muscle spasms, no CVA tenderness on percussion EXTREMITIES: moves all extremities, strength upper extremities 5/5, bilateral lower extremities 4/5 and symmetrical, no deformities or joint effusions. NEUROLOGIC: AAO x4, cranial nerves II-XII grossly intact , sensory exam intact to light touch, PSYCH: alert, tangential thought, good eye contact Objective Labs Result Diagrams: 02/19/19 03:42 02/19/19 18:23 Labs: Laboratory Results - last 24 hr 02/19/19 02/19/19 02/19/19 03:42 03:42 03:42 WBC 7.5 RBC 4.71 Hgb 14.7 Hct 43.6 MCV 92.5 MCH 31.1 MCHC 33.7 RDW 13.2 Plt Count 175 Neut % (Auto) 71.2 Lymph % (Auto) 19.0 L [place] % (Auto) 6.5 Eos % (Auto) 2.7 Baso % (Auto) 0.6 Neut # (Auto) 5300 Lymph # (Auto) 1400 [place] # (Auto) 500 Eos # (Auto) 200 Baso # (Auto) 0 PT 12.3 INR 1.1 APTT 34 Sodium 139 Potassium 3.8 Chloride 104 Carbon Dioxide 26 BUN 31 H Creatinine 0.80 Estimated GFR > 60.0 BUN/Creatinine Ratio 38.8 H Glucose 125 H Calcium 9.7 Magnesium Total Bilirubin 1.1 AST 257 H ALT 147 H Alkaline Phosphatase 227 H D Total Creatine Kinase 34 CK-MB (CK-2) TNP CK-MB (CK-2) Rel Index TNP Troponin I < 0.012 B-Natriuretic Peptide < 100 Total Protein 7.1 Albumin 4.1 Globulin 3.0 Albumin/Globulin Ratio 1.4 Triglycerides Cholesterol LDL Cholesterol, Calc HDL Cholesterol Lipase 79 Acetaminophen 02/19/19 02/19/19 02/19/19 05:44 06:40 06:43 WBC RBC Hgb Hct MCV MCH MCHC RDW Plt Count Neut % (Auto) Lymph % (Auto) [place] % (Auto) Eos % (Auto) Baso % (Auto) Neut # (Auto) Lymph # (Auto) [place] # (Auto) Eos # (Auto) Baso # (Auto) PT INR APTT Sodium Potassium Chloride Carbon Dioxide BUN Creatinine Estimated GFR BUN/Creatinine Ratio Glucose Calcium Magnesium 1.7 Total Bilirubin AST ALT Alkaline Phosphatase Total Creatine Kinase CK-MB (CK-2) CK-MB (CK-2) Rel Index Troponin I < 0.012 B-Natriuretic Peptide Total Protein Albumin Globulin Albumin/Globulin Ratio Triglycerides Cholesterol LDL Cholesterol, Calc HDL Cholesterol Lipase Acetaminophen < 10 L 02/19/19 02/19/19 02/19/19 06:43 18:23 18:23 WBC RBC Hgb Hct MCV MCH MCHC RDW Plt Count Neut % (Auto) Lymph % (Auto) [place] % (Auto) Eos % (Auto) Baso % (Auto) Neut # (Auto) Lymph # (Auto) [place] # (Auto) Eos # (Auto) Baso # (Auto) PT INR APTT Sodium 139 Potassium 4.3 Chloride 101 Carbon Dioxide 26 BUN 29 H Creatinine 0.70 Estimated GFR > 60.0 BUN/Creatinine Ratio 41.4 H Glucose 205 H Calcium 9.7 Magnesium Total Bilirubin 0.6 AST 567 H ALT 673 H Alkaline Phosphatase 271 H Total Creatine Kinase 30 CK-MB (CK-2) TNP CK-MB (CK-2) Rel Index TNP Troponin I < 0.012 B-Natriuretic Peptide Total Protein 7.0 Albumin 4.1 Globulin 2.9 Albumin/Globulin Ratio 1.4 Triglycerides 121 Cholesterol 118 L LDL Cholesterol, Calc 58 HDL Cholesterol 36 L Lipase Acetaminophen Discharge Plan Discharge Plan Patient Disposition: Home Discharge comment: Transfer to [facility] for higher level of care under GI service. Discharge Med Rec/Prescriptions Prescriptions: Continued atorvastatin 40 mg tablet 40 mg PO DAILY RF: 0 potassium chloride 10 mEq tablet extended release 10 meq PO DAILY RF: 0 furosemide 20 mg tablet 20 mg PO DAILY RF: 0 metoprolol succinate 25 mg tablet extended release 24 hr 25 mg PO DAILY RF: 0 lisinopril 2.5 mg tablet 2.5 mg PO QPM RF: 0 aspirin 81 mg Tablet,Delayed Release (Dr/Ec) 2 tab PO BEDTIME RF: 0 magnesium tablet 1 tab PO DAILY RF: 0 multivitamin 1 tab PO DAILY RF: 0 cholecalciferol (vitamin D3) 2,000 unit Tablet 2,000 unit PO DAILY RF: 0 ondansetron 4 mg tablet,disintegrating 4 mg PO Q8H Qty: 10 RF: 0 folic acid 800 mcg Tablet 800 mcg PO DAILY RF: 0 Follow up/Referrals: Selene Spivey MD [Primary Care Provider] - Provider Discharge Instructions Diet comment: NPO Discharge Data Primary Care Provider: Selene Spivey Attending Provider: Ray Carranza Admit Date/Time: 02/19/19 06:12 Quality VTE Deep Vein Thrombosis/Pulmonary Embolism Present on Admission: No
--- NOTE | 2019-02-19 22:42 | P.PN_ITS ---
Subjective Date Patient Seen: 02/19/19 Exam Vital Signs (past 8 hours): - 02/19/19 16:00 02/19/19 17:19 02/19/19 19:14 Temperature 98.1 F Pulse Rate 87 87 105 H Respiratory Rate 18 Blood Pressure 135/78 135/78 85/51 L Pulse Oximetry 95 95 02/19/19 19:15 02/19/19 19:29 02/19/19 19:36 Temperature Pulse Rate 105 H 90 78 Respiratory Rate Blood Pressure 88/57 L 94/41 L 100/59 L Pulse Oximetry 92 94 02/19/19 20:00 02/19/19 20:16 Temperature 98.4 F Pulse Rate 105 H 90 Respiratory Rate 16 Blood Pressure 88/57 L 94/41 L Pulse Oximetry 93 Oxygen Delivery Method Room Air Objective Labs Result Diagrams: 02/19/19 03:42 02/19/19 18:23 Labs: Laboratory Results - last 24 hr 02/19/19 02/19/19 02/19/19 03:42 03:42 03:42 WBC 7.5 RBC 4.71 Hgb 14.7 Hct 43.6 MCV 92.5 MCH 31.1 MCHC 33.7 RDW 13.2 Plt Count 175 Neut % (Auto) 71.2 Lymph % (Auto) 19.0 L [place] % (Auto) 6.5 Eos % (Auto) 2.7 Baso % (Auto) 0.6 Neut # (Auto) 5300 Lymph # (Auto) 1400 [place] # (Auto) 500 Eos # (Auto) 200 Baso # (Auto) 0 PT 12.3 INR 1.1 APTT 34 Sodium 139 Potassium 3.8 Chloride 104 Carbon Dioxide 26 BUN 31 H Creatinine 0.80 Estimated GFR > 60.0 BUN/Creatinine Ratio 38.8 H Glucose 125 H Calcium 9.7 Magnesium Total Bilirubin 1.1 AST 257 H ALT 147 H Alkaline Phosphatase 227 H D Total Creatine Kinase 34 CK-MB (CK-2) TNP CK-MB (CK-2) Rel Index TNP Troponin I < 0.012 B-Natriuretic Peptide < 100 Total Protein 7.1 Albumin 4.1 Globulin 3.0 Albumin/Globulin Ratio 1.4 Triglycerides Cholesterol LDL Cholesterol, Calc HDL Cholesterol Lipase 79 Acetaminophen 02/19/19 02/19/19 02/19/19 05:44 06:40 06:43 WBC RBC Hgb Hct MCV MCH MCHC RDW Plt Count Neut % (Auto) Lymph % (Auto) [place] % (Auto) Eos % (Auto) Baso % (Auto) Neut # (Auto) Lymph # (Auto) [place] # (Auto) Eos # (Auto) Baso # (Auto) PT INR APTT Sodium Potassium Chloride Carbon Dioxide BUN Creatinine Estimated GFR BUN/Creatinine Ratio Glucose Calcium Magnesium 1.7 Total Bilirubin AST ALT Alkaline Phosphatase Total Creatine Kinase CK-MB (CK-2) CK-MB (CK-2) Rel Index Troponin I < 0.012 B-Natriuretic Peptide Total Protein Albumin Globulin Albumin/Globulin Ratio Triglycerides Cholesterol LDL Cholesterol, Calc HDL Cholesterol Lipase Acetaminophen < 10 L 02/19/19 02/19/19 02/19/19 06:43 18:23 18:23 WBC RBC Hgb Hct MCV MCH MCHC RDW Plt Count Neut % (Auto) Lymph % (Auto) [place] % (Auto) Eos % (Auto) Baso % (Auto) Neut # (Auto) Lymph # (Auto) [place] # (Auto) Eos # (Auto) Baso # (Auto) PT INR APTT Sodium 139 Potassium 4.3 Chloride 101 Carbon Dioxide 26 BUN 29 H Creatinine 0.70 Estimated GFR > 60.0 BUN/Creatinine Ratio 41.4 H Glucose 205 H Calcium 9.7 Magnesium Total Bilirubin 0.6 AST 567 H ALT 673 H Alkaline Phosphatase 271 H Total Creatine Kinase 30 CK-MB (CK-2) TNP CK-MB (CK-2) Rel Index TNP Troponin I < 0.012 B-Natriuretic Peptide Total Protein 7.0 Albumin 4.1 Globulin 2.9 Albumin/Globulin Ratio 1.4 Triglycerides 121 Cholesterol 118 L LDL Cholesterol, Calc 58 HDL Cholesterol 36 L Lipase Acetaminophen Assessment & Plan Assessment & Plan narrative: Brief progress note: Patient seen and examined. Physical exam unchanged. Agree with admitting providers assessment and plan. In addition, discussed CT abdomen and pelvis with contrast, as well as, laboratory and exam findings with General surgery. Recommended patient be transferred for ERCP due to history of ruptured gallbladder with bile duct injury. Patient likely has bile duct obstru ction with CT evidence of moderate bile duct dilatation, LFT elevation, epigastric abdominal pain radiating to back. Does not need MRCP as clear evidence of bile duct obstruction on CT. Cardiac workup has been negative including: Serial troponins, EKG which demonstrated sinus rhythm with LBBB not meeting Sgarbossa criteria. Patient has no chest pain, shortness of breath, nausea, vomiting, diaphoresis, arm, neck or jaw pain. Do not believe stress test is indicated. Patient is hemodynamically stable but is at high risk of decompensation sepsis and ascending cholangitis. Plan to contact GI and attempt transfer for therpeutic ERCP. Quality VTE Deep Vein Thrombosis/Pulmonary Embolism Present on Admission: No
[2019-02-19] MEDS: ACETAMINOPHEN 325 MG TABLET 650 MG PO (23:12)
[2019-02-20 00:45] VITALS: BP 101/63; PULSE 75; RESP 17; O2SAT 93
--- NOTE | 2019-02-20 00:51 | PC.NURSE ---
Patient left via stretcher at 0048 for [facility]. VS 101/63, P 75, RR 17,93% RA. Patient has all belongings with her and transport team. Lucy at [facility] was called with time of departure, and last VS. No other questions needed.
== END 2019-02-20 00:48 | disposition short-term general hospital (02) ==
LOC: ED 05:56 → AC 06:13
PROVIDERS: Internal Medicine; Admitting Provider Nurse Practitioner Adult Health; Emergency Provider Emergency Medicine; PCP Internal Medicine; Visit Provider Nurse Practitioner Adult Health
DX: R10.13 Epigastric pain (principal); I25.10 Atherosclerotic heart disease of native coronary artery without angina pectoris; I25.2 Old myocardial infarction; I50.21 Acute systolic (congestive) heart failure; R07.9 Chest pain, unspecified; K59.09 Other constipation; E78.5 Hyperlipidemia, unspecified
CPT/HCPCS: 36415; 36591; 71045; 71275; 74174; 80053; 80061; 80329; 82550; 83690; 83735; 83880; 84484; 85025; 85610; 85730; 93005; 96361; 96374; 96375; 97162; 99285; G0378; C8929; G0480; J1200; J2930; Q9957; Q9967

== ENCOUNTER → 2020-05-04 08:20 | Outpatient (CLI) | payer MEDICARE, SELFPAY ==
[2020-04-05 14:22] VITALS: BMI 43.0
[2020-05-05 22:38] LABS: COVID19 Sendout Not Detected (Not Detect)
== END ==
PROVIDERS: PCP Internal Medicine; Visit Provider Physician Assistant
DX: Z11.59 Encounter for screening for other viral diseases (principal)
CPT/HCPCS: 87635

== ENCOUNTER → 2020-05-22 09:39 | Outpatient (CLI) | payer MEDICARE, SELFPAY ==
[2020-04-05 14:22] VITALS: BMI 43.0
--- NOTE | 2020-05-22 09:43 | DI.MG.S_ITS ---
BILATERAL DIGITAL SCREENING MAMMOGRAM 3D/2D WITH CAD: 05/22/2020 CLINICAL: Routine screening. Comparison is made to exams dated: 01/13/2019 mammogram, 04/29/2017 mammogram, and 04/24/2016 mammogram - [facility]. There are scattered fibroglandular elements in both breasts. Current study was also evaluated with a Computer Aided Detection (CAD) system. There are benign calcifications in both breasts. There also are benign vascular calcifications in both breasts. No significant masses, calcifications, or other findings are seen in either breast. There has been no significant interval change. IMPRESSION: BENIGN There is no mammographic evidence of malignancy. A 1 year screening mammogram is recommended. This exam was interpreted at Station ID: [id number]. NOTE: For mammograms, a report in lay terms will be sent to the patient. Approximately 15% of breast malignancies will not be visualized mammographically. In the management of a palpable breast mass, a negative mammogram must not discourage biopsy of a clinically suspicious lesion. Electronically Signed By: Awais york/cody:05/22/2020 11:34:49 letter sent: Normal Exam ACR BI-RADS Category 2: Benign Finding(s) [id number]
== END ==
PROVIDERS: PCP Family Medicine Sports Medicine; Referring Provider Family Medicine Sports Medicine; Visit Provider Internal Medicine
DX: Z12.31 Encounter for screening mammogram for malignant neoplasm of breast (principal)
CPT/HCPCS: 77063; 77067

== ENCOUNTER → 2022-09-03 15:01 | Outpatient (CLI) | payer MEDICARE, SELFPAY ==
[2020-04-05 14:22] VITALS: BMI 43.0
[2022-09-03 15:51] LABS: Add Manual Diff / Slide Review NO; Basophils Absolute Auto 100 /uL (0-100); Basophils Percent Auto 0.8 % (0-2); Eosinophils Absolute Auto 200 /uL (0-450); Eosinophils Percent Auto 3.4 % (2-4); Hemoglobin 14.1 g/dL (12.0-16.0); Lymphocytes Absolute Auto 1000 /uL (1100-4500); Lymphocytes Percent Auto 16.4 % (25-40); Mean Corpuscular HGB Conc 32.7 % (30-36); Mean Corpuscular Hemoglobin 28.9 PG (26-34); Mean Corpuscular Volume 88.4 fL (80-100); Monocytes Absolute Auto 500 /uL (0-900); Monocytes Percent Auto 8.7 % (3-14); Neutrophils Absolute Auto 4400 /uL (1500-7000); Neutrophils Percent Auto 70.7 % (50-75); Platelet Count 138 X10^3/uL (150-400); Red Blood Cell Count 4.87 X10^6/uL (4.0-5.2); Red Cell Distribution Width 18.9 % (11.6-14.8); White Blood Cell Count 6.3 X10^3/uL (4.5-11.0)
[2022-09-03 18:34] LABS: Alanine Aminotransferase 78 IU/L (<35); Albumin 4.2 g/dL (3.5-5.0); Albumin Globulin Ratio 1.4 (1.0-2.8); Alkaline Phosphatase 123 U/L (38-126); Aspartate Aminotransferase 46 IU/L (14-36); BUN Creatinine Ratio 42.6 (6-22); Bilirubin Total 0.6 mg/dL (0.2-1.3); Blood Urea Nitrogen 29 mg/dL (7-17); C-Reactive Protein Quant < 0.5 mg/dL (<1.0); Calcium 9.7 mg/dL (8.4-10.2); Carbon Dioxide 28 mmol/L (22-32); Chloride 97 mmol/L (98-107); Estimated Glomerular Filt Rate > 60 mL/min (>60); Globulin 2.9 g/dL (1.7-4.1); Glucose 154 mg/dL (80-110); HEMOLYSIS < 15 (0-50); Sodium 136 mmol/L (137-145); Total Protein 7.1 g/dL (6.3-8.2); Uric Acid 6.9 mg/dL (2.5-6.2)
[2022-09-03 18:48] LABS: Rheumatoid Factor < 8.6 IU/mL (<12.0)
== END ==
PROVIDERS: PCP Family Medicine Sports Medicine; Referring Provider Registered Nurse; Visit Provider Registered Nurse
DX: M25.50 Pain in unspecified joint (principal)
CPT/HCPCS: 36415; 80053; 84550; 85025; 86140; 86430

== ENCOUNTER 2022-10-05 12:30 | Outpatient (RCR) | payer MEDICARE, SELFPAY ==
[2020-04-05 14:22] VITALS: BMI 43.0
== END 2022-10-05 14:30 ==
LOC: CAR 12:30
PROVIDERS: PCP Family Medicine Sports Medicine; Referring Provider Specialist; Visit Provider Specialist
DX: Z95.5 Presence of coronary angioplasty implant and graft (principal)
CPT/HCPCS: 93798